=== PATIENT | female | born 1975 | race Two or more races ===

== ENCOUNTER 2020-03-01 12:42 | Outpatient (REF) | payer OTHER, SELFPAY ==
--- NOTE | 2020-03-01 | MM_ITS ---
EXAMINATION: MM SCREENING DIGITAL BREAST TOMOSYNTHESIS, BILATERAL CLINICAL INFORMATION: Screening. Asymptomatic. Patient notes prior history bilateral mastopexy approximately 10 years ago The lifetime risk of breast cancer based on the Tyrer-Cuzick Model is 8%. COMPARISON: Mammography: 09/28/2018, 08/20/2017, 08/04/2016, 07/14/2015 TECHNIQUE: Digital breast tomosynthesis is performed in both the craniocaudal and mediolateral oblique views along with computer-aided detection (CAD). Synthesized 2D images are generated from the tomosynthesis. FINDINGS: The breasts are heterogeneously dense, which may obscure small masses (ACR BI-RADS breast composition Category c). There is fine fibronodular parenchymal pattern similar to prior studies. The right breast shows no interval mass or architectural abnormality. Neither breast shows abnormal calcifications. The bilateral axilla and skin contours are unremarkable. The left CC view has asymmetric density outer quadrant 9.6 cm from nipple with no MLO correlate, likely summation artifact or incompletely compressed glandular tissue. Patient will be recalled to confirm with additional views. IMPRESSION: 1. Left: Asymmetric density outer quadrant on CC view likely summation artifact or incompletely compressed glandular tissue. 2. Right: No mammographic evidence of malignancy. ASSESSMENT: BI-RADS 0: Incomplete - Need Additional Imaging Evaluation RECOMMENDATION: 1. Additional views of the left breast (rolled CC x2). 2. Targeted ultrasound if warranted after review of the additional views. 3. Radiology department staff will contact the patient for additional imaging. This patient's information was entered into a reminder system with a target due date for their next mammogram.
== END 2020-03-01 12:43 | disposition home or self-care (01) ==
LOC: HO.MAMMO 12:42
PROVIDERS: PCP Internal Medicine; Visit Provider Internal Medicine
DX: Z12.31 Encounter for screening mammogram for malignant neoplasm of breast (principal)
CPT/HCPCS: 77063; 77067

== ENCOUNTER 2020-03-04 07:29 | Outpatient (REF) | payer OTHER, SELFPAY ==
--- NOTE | 2020-03-04 07:36 | MM_ITS ---
EXAMINATION: MM DIAGNOSTIC DIGITAL BREAST TOMOSYNTHESIS, LEFT CLINICAL INFORMATION: Recall from screening for asymmetric density outer quadrant on CC view, likely summation artifact or incompletely compressed glandular tissue. TC score 8%. COMPARISON: Mammography: 03/01/2020, 09/28/2018 TECHNIQUE: Digital breast tomosynthesis is performed. 2D images are generated from the tomosynthesis. The following views are obtained: Rolled CC x2, spot CC x2. FINDINGS: The breasts are heterogeneously dense, which may obscure small masses (ACR BI-RADS breast composition Category c). The additional views show no persistent asymmetric density. There is no mass or developing density or architectural abnormality. Results are discussed with the patient at time of visit. IMPRESSION: Additional views show no persistent asymmetric density. No significant changes from prior studies. ASSESSMENT: BI-RADS 1: Negative RECOMMENDATION: Routine annual mammography screening. This patient's information was entered into a reminder system with a target due date for their next mammogram.
== END 2020-03-04 07:30 | disposition home or self-care (01) ==
LOC: HO.MAMMO 07:29
PROVIDERS: PCP Internal Medicine; Visit Provider Internal Medicine
DX: N64.89 Other specified disorders of breast (principal); R92.2 Inconclusive mammogram
CPT/HCPCS: 77065

== ENCOUNTER 2021-03-10 08:34 | Outpatient (REF) | payer OTHER, SELFPAY ==
--- NOTE | ~2021-03-10 | MM_ITS ---
EXAMINATION: MM SCREENING DIGITAL BREAST TOMOSYNTHESIS, BILATERAL CLINICAL INFORMATION: Screening. Asymptomatic. The lifetime risk of breast cancer based on the Tyrer-Cuzick Model is 7%. COMPARISON: Mammography: 03/04/2020, 03/01/2020, 09/28/2018, 08/20/2017, 08/04/2016 TECHNIQUE: Digital breast tomosynthesis is performed in both the craniocaudal and mediolateral oblique views along with computer-aided detection (CAD). Synthesized 2D images are generated from the tomosynthesis. Additional bilateral CC views are provided. FINDINGS: The breasts are heterogeneously dense, which may obscure small masses (ACR BI-RADS breast composition Category c). There is a fine fibronodular parenchymal pattern similar to prior studies. No developing density or interval mass or architectural abnormality. No abnormal calcifications. The axilla and skin contours are unremarkable. MM/MM tomosynthesis screening BI IMPRESSION: No mammographic evidence of malignancy. ASSESSMENT: BI-RADS 1: Negative RECOMMENDATION: Routine annual mammography screening. This patient's information was entered into a reminder system with a target due date for their next mammogram.
== END 2021-03-10 08:35 | disposition home or self-care (01) ==
LOC: HO.MAMMO 08:34
PROVIDERS: Visit Provider Internal Medicine
DX: Z12.31 Encounter for screening mammogram for malignant neoplasm of breast (principal)
CPT/HCPCS: 77063; 77067

== ENCOUNTER 2021-09-19 09:56 | Outpatient (REF) | payer OTHER, SELFPAY ==
[2021-09-19 10:11] LABS: MANUAL DIFF FLAG NO
[2021-09-19 10:28] LABS: Basophils Percent Auto 0.7 % (0-2); Eosinophils Absolute Auto 0.1 X10*3/uL (0.0-0.4); Eosinophils Percent Auto 1.1 % (0-4); Hematocrit 38.4 % (37.0-47.0); Hemoglobin 12.8 g/dl (12.0-16.0); Imm Gran Abs Auto 0.01 X10*3/uL (0.00-0.03); Imm Gran Pct Auto 0.2 % (0.0-0.4); Lymphocytes Absolute Auto 1.4 X10*3/uL (1.2-4.9); Lymphocytes Percent Auto 26.9 % (20-40); Mean Corpuscular HGB Conc 33.3 g/dl (31.0-35.0); Mean Corpuscular Hemoglobin 32.8 pg (27.0-33.0); Mean Corpuscular Volume 98.5 fL (80.0-98.0); Mean Platelet Volume 10.5 fL (9.4-12.3); Monocytes Absolute Auto 0.4 X10*3/uL (0.1-1.2); Monocytes Percent Auto 7.5 % (2-11); Neutrophils Absolute Auto 3.4 x10*3/uL (2.0-8.3); Neutrophils Percent Auto 63.6 % (45-73); Platelet Count 319 X10*3/uL (160-400); Red Cell Distribution Width 12.4 % (11.0-16.0); White Blood Count 5.4 X10*3/uL (4.8-10.8)
[2021-09-19 12:14] LABS: Folate 11.1 ng/mL (> or = 4.0); Vitamin B12 341 pg/mL (200-900)
[2021-09-19 15:17] LABS: Alanine Aminotransferase 7 U/L (0-31); Alkaline Phosphatase 42 U/L (39-117); Anion Gap 12 (12-20); Aspartate Amino Transferase 11 U/L (5-31); Bilirubin Total 1.3 mg/dL (0.0-1.0); Blood Urea Nitrogen 18 mg/dL (9-16); Calcium 9.2 mg/dL (8.4-10.2); Carbon Dioxide 25 mmol/L (22-29); Chloride 105 mmol/L (96-108); Cholesterol 169 mg/dL; Estimated Glomerular Filt Rate > 60; Glucose Random 86 mg/dL (60-115); HDL Cholesterol 47 mg/dL; LDL Cholesterol Calculated 107 mg/dl; Potassium 4.5 mmol/L (3.3-5.1); Sodium 137 mmol/L (135-145); Total Protein 6.9 g/dL (6.5-8.0); Triglycerides 76 mg/dL
[2021-09-19 15:39] LABS: Free T4 (Free Thyroxine) 0.92 ng/dL (0.71-1.85); Thyroid Stimulating Hormone 1.79 uIU/mL (0.32-4.0); Vitamin D 25-OH Total 19.5 ng/mL (>30)
== END 2021-09-19 09:57 | disposition home or self-care (01) ==
LOC: HO.LAB 09:56
PROVIDERS: PCP Internal Medicine; Visit Provider Internal Medicine
DX: K21.9 Gastro-esophageal reflux disease without esophagitis (principal); E78.00 Pure hypercholesterolemia, unspecified
CPT/HCPCS: 36415; 80053; 80061; 82306; 82607; 82746; 84439; 84443; 85025

== ENCOUNTER 2021-10-04 14:12 | Outpatient (REF) | payer OTHER, SELFPAY ==
--- NOTE | ~2021-10-04 | US_ITS ---
EXAMINATION: US RETROPERITONEAL LIMITED (RENAL ONLY) CLINICAL INFORMATION: Stress incontinence. Renal stones. COMPARISON: CT abdomen 11/22/2006 TECHNIQUE: Real-time imaging of the kidneys. FINDINGS: RIGHT KIDNEY: 10.8 x 4.1 x 5.0 cm (SAG x AP x TRV). The kidney is normal in size, contour, and echogenicity. Renal cortical thickness is normal. No calculi or focal parenchymal lesions. No hydronephrosis. LEFT KIDNEY: 10.2 x 4.1 x 4.8 cm (SAG x AP x TRV). The kidney is normal in size, contour, and echogenicity. Renal cortical thickness is normal. No focal parenchymal lesions. A 3 mm nonobstructing left lower pole renal stone. Trace left hydronephrosis. BLADDER: Bilateral ureteral jets are demonstrated. Prevoid bladder volume is 538 mL. Postvoid bladder volume is 81 mL. Bladder is otherwise unremarkable. US/US renal BI IMPRESSION: Trace left hydronephrosis. Consider CT stone protocol if any clinical concern for obstructing ureteral stone. A 3 mm nonobstructing left lower pole renal stone is seen. Small postvoid bladder residual of 81 mL.
--- NOTE | ~2021-10-04 | US_ITS ---
EXAMINATION: US PELVIS CLINICAL INFORMATION: Fibroid. Stress incontinence. COMPARISON: 04/27/2015 and 06/02/2014. TECHNIQUE: Ultrasound of the pelvis is performed using both transabdominal and transvaginal transducers along with Doppler. Transvaginal imaging is performed due to inadequate visualization transabdominally. FINDINGS: Uterus: The uterus is anteverted and measures 13.3 x 7.8 x 9.9 cm. Uterine volume is 537 mL. The double wall endometrial thickness is 9 mm. Multiple uterine fibroids are identified, 2 of which are new with the new fibroids identified in the superior mid upper uterine segment measuring 2.6 x 1.4 x 2.1 and in the mid uterine segment towards the right side, there is a 2.0 x 1.7 x 2.3 cm fibroid. A previously noted fibroid within the right upper uterine segment/fundus has increased in size to 3.7 x 3.4 x 3.9 cm compared to prior study where it measured 1.9 x 1.9 x 1.8 cm in size. There has also been enlargement of a mid uterine fibroid extending on the left to 8.9 x 7.2 x 9.1 cm in size compared to previously where it measured 5.0 x 4.4 x 5.0 cm in size. There are prominent uterine/ovarian veins present bilaterally. Adnexa: Both ovaries are visualized. There is normal color-flow to the adnexa. There is no ovarian torsion. There is a moderate amount of free fluid present. Right ovary was not identified. Left ovary measures 3.4 x 2.4 x 2.8 cm. Volume of 12.0 mL. US/US pelvic and transvaginal IMPRESSION: Enlarging uterine fibroids, as described, with 2 new fibroids identified. Moderate free fluid within the cul-de-sac. Prominent pelvic veins which may be related to pelvic congestion.
== END 2021-10-04 14:13 | disposition home or self-care (01) ==
LOC: HO.HMGCX 14:12
PROVIDERS: Visit Provider Internal Medicine
DX: N20.0 Calculus of kidney (principal); D21.9 Benign neoplasm of connective and other soft tissue, unspecified
CPT/HCPCS: 76775; 76830; 76856

== ENCOUNTER → 2021-11-14 12:31 | Outpatient (BNVA) | payer OTHER, SELFPAY | PROVIDERS: PCP Internal Medicine; Referring Provider Internal Medicine; Visit Provider Physician Assistant | DX: Z12.11 Encounter for screening for malignant neoplasm of colon (principal) | CPT/HCPCS: 99202 ==

== ENCOUNTER 2021-11-22 09:04 | Day surgery (SDC) | payer OTHER, SELFPAY ==
--- NOTE | 2021-11-18 09:43 | P.CONAN_ITS ---
Documented by User: Amy Mac NP 11/18/21 09:50 HPI - Anesthesia Eval Consult details Narrative: 46yo F for Colonoscopy PMFSH Active Problems Active Problems: All Active Problems (Updated 09/19/21 @ 09:28 by Arabella Hawkins MD) Mixed incontinence (Acute) Swollen eyelid (Acute) Fibroid (Acute) Right renal stone (Acute) Colon cancer screening (Acute) Annual physical exam (Acute) GERD (gastroesophageal reflux disease) (Acute) Breast asymmetry (Acute) Past Medical History Medical History Allergic rhinitis Anxiety and depression GERD (gastroesophageal reflux disease) Insomnia Right renal stone Strabismus Stress incontinence Vitamin D deficiency Family History Family History Mother Hypertension Father Cancer Liver cancer Surgical History Surgical History H/O abdominoplasty History of breast mammoplasty Social History Social History Housing: Apartment Alcohol intake: never Patient Tobacco Use Status: Never used Tobacco e-Cigarette/Vaping Use: Never Used Second Hand Smoke Exposure: No Use of substances other than those prescribed or required for medical reasons: No Are you DNR?: No Advance Directives: No Advance Directives Information Provided: Yes Recently lost weight without trying: No How much weight loss: 24-33 pounds Nutrition Risks: No Nutritional Risk service: No Current occupational status: employed Current occupation: Homecare Cognitive needs: No Hearing needs: No Vision needs: No Meds Allergies Allergy/AdvReac Type Severity Reaction Status Date / Time zaleplon Allergy Unknown inadequate Verified 11/14/21 12:36 response zolpidem Allergy Unknown inadequate Verified 11/14/21 12:36 response Home Medications Medication Instructions Recorded Confirmed Last Taken Type fluticasone furoate 27.5 1 spray intranasal DAILY 09/19/21 09/19/21 Unknown History mcg/actuation nasal spray,suspension Exam Exam Date and Time: November 18, 2021 0943 Pertinent Lab Results Pertinent Lab Results: Laboratory Tests 09/19/21 09/19/21 10:09 Unknown WBC 5.4 Hgb 12.8 Hct 38.4 Plt Count 319 Sodium 137 Potassium 4.5 Chloride 105 Carbon Dioxide 25 BUN 18 H Creatinine 0.80 Assessment and Plan Assessment Anesthesia Assessment: Chart Reviewed Documented by User: Roque Car MD 11/22/21 10:27 [facility] Past Medical History Medical History Allergic rhinitis Anxiety and depression GERD (gastroesophageal reflux disease) Insomnia Right renal stone Strabismus Stress incontinence Vitamin D deficiency Patient : No Family History Family History Mother Hypertension Father Cancer Liver cancer Family history of problems with anesthesia: No Surgical History Surgical History H/O abdominoplasty History of breast mammoplasty History of Problems with Anesthesia: No Social History Social History Housing: Apartment Alcohol intake: never Patient Tobacco Use Status: Never used Tobacco e-Cigarette/Vaping Use: Never Used Second Hand Smoke Exposure: No Use of substances other than those prescribed or required for medical reasons: No Are you DNR?: No Advance Directives: No Advance Directives Information Provided: Yes Recently lost weight without trying: No How much weight loss: 24-33 pounds Nutrition Risks: No Nutritional Risk service: No Current occupational status: employed Current occupation: Homecare Cognitive needs: No Hearing needs: No Vision needs: No Meds Allergies Allergy/AdvReac Type Severity Reaction Status Date / Time zaleplon Allergy Unknown inadequate Verified 11/14/21 12:36 response zolpidem Allergy Unknown inadequate Verified 11/14/21 12:36 response Home Medications Medication Instructions Recorded Confirmed Last Taken Type fluticasone furoate 27.5 1 spray intranasal DAILY 09/19/21 09/19/21 Unknown Hist ory mcg/actuation nasal spray,suspension Exam Airway Mallampati Class: III TM Dist: >3cm Neck ROM: Full Loose/Missing/Broken Teeth: No Heart: rrr Lungs: clear Assessment and Plan Final Anesthetic Review Family History of Problems with Anesthesia: No History of Problems with Anesthesia: No NPO: Yes ASA Class: II Final Preanesthetic Review: No Changes in Pt Med Stat, Meds/Allgs Chart Reviewed, Consent Obtained/Reviewed and Anes Risks/Benef Reviewed Patient Risk: Low Procedure Risk: Low Anesthetic Plan Anesthetic Plan: MAC: Disposition: Standard PACU
[2021-11-22 09:46] LABS: UPreg QC Valid YES; Urine Pregnancy NEGATIVE (NEGATIVE)
[2021-11-22 09:51] VITALS: BMI 23.6
[2021-11-22 10:03] VITALS: BP 121/58; PULSE 64; RESP 16; TEMP 36.3; O2SAT 96
--- NOTE | 2021-11-22 10:56 | MHC.SHP ---
Pre-Procedural Eval Section A Date of Service: 11/22/21 The patient is an INPATIENT: No Changes since office visit: Yes Patient answered all questions; No Cold of Flu in the past 2 weeks, No New Medical Problems and No Changes in Medication The History & Physical has been completed within 30 days and I have reviewed it.: Yes Section B Chief Complaint: screening Allergies: Allergies Allergy/AdvReac Type Severity Reaction Status Date / Time zaleplon Allergy Unknown inadequate Verified 11/14/21 12:36 response zolpidem Allergy Unknown inadequate Verified 11/14/21 12:36 response Plan I have reviewed the history and physical and performed a pertinent physical examination on my patient. No changes have occurred unless specified.
--- NOTE | 2021-11-22 10:57 | P.BOP_ITS ---
Brief Operative Note Date of Service: 11/22/21 Pre-op diagnosis: Colon cancer screening Post-op diagnosis: other ( diverticulosis, hemorrhoids) Procedure: COLONOSCOPY TILL CECUM Consent: Indications for the procedure and potential complications of bleeding, perforation, reaction to medications and missed diagnosis were discussed with the patient and informed consent was obtained. Instrument: Olympus PCF H 190 L variable stiffness pediatric colonoscope Monitoring: Vital signs and clinical assessment, intermittent blood pressure monitoring, continuous EKG monitoring, Pulse oximetry and Carbon Dioxide monitoring were done throughout the procedure. Colon withdrawl time was 17 minutes. Procedure: The patient was placed in the left lateral decubitis position and pre-procedure medications were administered. After a digital rectal examination of the ano-rectum, the video colonoscope was inserted into the rectum and advanced through the colon to the cecum. The colonoscope was slowly withdrawn in a retrograde panoramic fashion and the colon mucosa was carefully examined including a retroflexed view of the rectum. Findings and interventions are described below. Procedure Difficulty: colon was long and tortuous and there was spasm and some loop formation. no maneuvers were required Findings: Terminal Ileum: Not evaluated Cecum: Normal Ascending Colon: Normal Transverse Colon: Normal Descending Colon: Moderate diverticulosis Sigmoid Colon: Moderate diverticulosis Rectum: Normal Ano-rectum: Small internal hemorrhoids Colon preparation: Excellent Impression and Post Procedure Diagnosis: Colonoscopy Findings: No polyps were detected. Moderate diverticulosis seen in the left colon Small hemorrhoids on retroflexed exam. Plan: Patient has an appointment on 12/14/21 in the [facility] with CHERYLE Conrad. Repeat Colonoscopy in 9-10 years. Above findings were reviewed with the patient and diverticulosis handout was given in the discharge area Surgeon: Abeba Grigsby MD Anesthesia: MAC (Dr Car) Was an In Service Education Teacher used for this Procedure?: Yes In Service Education Teacher: Ave Smith Estimated blood loss (mL): 0 Pathology: none sent Condition: stable Disposition: PACU
[2021-11-22 11:42] VITALS: BP 102/45; PULSE 60; RESP 16; TEMP 36.4; O2SAT 100
--- NOTE | 2021-11-22 11:51 | P.OP_ITS ---
Operative Note Operative Note Date of Service: 11/22/21 Narrative: Pre-op diagnosis: Colon cancer screening Post-op diagnosis:?other ( diverticulosis, hemorrhoids) Procedure: COLONOSCOPY TILL CECUM Consent: Indications for the procedure and potential complications of bleeding, perforation, reaction to medications and missed diagnosis were discussed with the patient and informed consent was obtained. Instrument: Olympus PCF H 190 L variable stiffness pediatric colonoscope Monitoring: Vital signs and clinical assessment, intermittent blood pressure monitoring, continuous EKG monitoring, Pulse oximetry and Carbon Dioxide monitoring were done throughout the procedure. Colon withdrawl time was 17 minutes. Procedure: The patient was placed in the left lateral decubitis position and pre-procedure medications were administered. After a digital rectal examination of the ano-rectum, the video colonoscope was inserted into the rectum and advanced through the colon to the cecum. The colonoscope was slowly withdrawn in a retrograde panoramic fashion and the colon mucosa was carefully examined including a retroflexed view of the rectum. Findings and interventions are described below. Procedure Difficulty: ? colon was long and tortuous and there was spasm and some loop formation. ?no maneuvers were required Findings: Terminal Ileum: Not evaluated Cecum:? Normal Ascending Colon:? Normal Transverse Colon:? Normal Descending Colon:? Moderate diverticulosis Sigmoid Colon:? Moderate diverticulosis Rectum:? Normal Ano-rectum:? Small internal hemorrhoids Colon preparation: Excellent ? Impression and Post Procedure Diagnosis: Colonoscopy Findings: No polyps were detected. Moderate diverticulosis seen in the left colon Small hemorrhoids on retroflexed exam. Plan: Patient has an appointment on 12/14/21 in the GI Clinic with CHERYLE Conrad. Repeat Colonoscopy in 9-10 years. Diverticulosis handout was given in the discharge area Surgeon: Abeba Grigsby MD Anesthesia:?MAC (Dr Car) Was an Material Requirements Worker used for this Procedure?:?Yes Material Requirements Worker:?Ave Smith Estimated blood loss (mL):?0 Pathology:?none sent Condition:?stable Disposition:?PACU
[2021-11-22 11:57] VITALS: BP 105/57; PULSE 57; RESP 18; O2SAT 100
[2021-11-22 12:12] VITALS: BP 127/71; PULSE 55; RESP 16; TEMP 36.7; O2SAT 100
== END 2021-11-22 12:46 | disposition home or self-care (01) ==
PROVIDERS: Nurse Practitioner; PCP Internal Medicine; Visit Provider Internal Medicine Gastroenterology
PROC: 0DJD8ZZ Inspection of Lower Intestinal Tract, Via Natural or Artificial Opening Endoscopic (ICD-10-PCS; CPT 45378; principal; 2021-11-22 10:40)
DX: Z12.11 Encounter for screening for malignant neoplasm of colon (principal); K57.30 Diverticulosis of large intestine without perforation or abscess without bleeding; K64.8 Other hemorrhoids; R14.0 Abdominal distension (gaseous); Z98.890 Other specified postprocedural states; J30.9 Allergic rhinitis, unspecified; F41.8 Other specified anxiety disorders; E55.9 Vitamin D deficiency, unspecified; Z79.51 Long term (current) use of inhaled steroids; Z88.8 Allergy status to other drugs, medicaments and biological substances
CPT/HCPCS: 45378; 81025

== ENCOUNTER → 2021-12-05 13:06 | Outpatient (BNVA) | payer OTHER, SELFPAY | PROVIDERS: PCP Internal Medicine; Visit Provider Obstetrics & Gynecology | DX: D25.9 Leiomyoma of uterus, unspecified (principal) | CPT/HCPCS: 99202 ==

== ENCOUNTER → 2021-12-15 15:07 | Outpatient (BNVA) | payer OTHER, SELFPAY | PROVIDERS: PCP Internal Medicine; Referring Provider Internal Medicine; Visit Provider Physician Assistant | DX: K64.9 Unspecified hemorrhoids (principal); K57.30 Diverticulosis of large intestine without perforation or abscess without bleeding | CPT/HCPCS: 99212 ==

== ENCOUNTER → 2022-03-10 12:37 | Outpatient (BNVA) | payer OTHER, SELFPAY | PROVIDERS: PCP Internal Medicine; Visit Provider Physician Assistant | DX: M77.12 Lateral epicondylitis, left elbow (principal) | CPT/HCPCS: 20551; 99202; J1100 ==

== ENCOUNTER 2022-03-13 08:11 | Outpatient (REF) | payer OTHER, SELFPAY ==
--- NOTE | ~2022-03-13 | MM_ITS ---
EXAMINATION: MM SCREENING DIGITAL BREAST TOMOSYNTHESIS, BILATERAL CLINICAL INFORMATION: Screening. Asymptomatic. Status post breast reduction surgery. The lifetime risk of breast cancer based on the Tyrer-Cuzick Model is 5.9%. COMPARISON: Mammography: March 10, 2021 and studies dating back to May 19, 2014 TECHNIQUE: Digital breast tomosynthesis is performed in both the craniocaudal and mediolateral oblique views along with computer-aided detection (CAD). Synthesized 2D images are generated from the tomosynthesis. FINDINGS: The breasts are extremely dense, which lowers the sensitivity of mammography (ACR BI-RADS breast composition Category d). There are no significant masses, abnormal calcifications, or other abnormalities. MM/MM tomosynthesis screening BI IMPRESSION: No significant changes from prior exam. ASSESSMENT: BI-RADS 1: Negative RECOMMENDATION: Routine annual mammography screening. This patient's information was entered into a reminder system with a target due date for their next mammogram.
== END 2022-03-13 08:12 | disposition home or self-care (01) ==
LOC: HO.MAMMO 08:11
PROVIDERS: PCP Internal Medicine; Visit Provider Internal Medicine
DX: Z12.31 Encounter for screening mammogram for malignant neoplasm of breast (principal)
CPT/HCPCS: 77063; 77067

== ENCOUNTER 2022-03-23 10:17 | Outpatient (REF) | payer OTHER, SELFPAY ==
[2022-03-23 13:34] LABS: CT PCR NOT DETECTED (Not Detect.); NG PCR NOT DETECTED (Not Detect.)
[2022-03-24 11:12] LABS: BV Int Neg Control Negative (Negative); BV Int Pos Control Positive (Positive)
[2022-03-28 20:52] LABS: HPV mRNA E6/E7 rflx Not Detected (Not Detected)
== END 2022-03-23 10:18 | disposition home or self-care (01) ==
LOC: HO.LNP 10:17
PROVIDERS: Visit Provider Advanced Practice Midwife
DX: Z01.419 Encounter for gynecological examination (general) (routine) without abnormal findings (principal)
CPT/HCPCS: 87480; 87491; 87510; 87591; 87624; 87660; 88142

== ENCOUNTER 2022-08-22 11:01 | Outpatient (REF) | payer OTHER, SELFPAY ==
--- NOTE | ~2022-08-22 | US_ITS ---
EXAMINATION: US PELVIS CLINICAL INFORMATION: Uterine leiomyoma; the patient is currently having her menstrual period. COMPARISON: Pelvic ultrasound dated 10/04/2021. TECHNIQUE: Ultrasound of the pelvis is performed using both transabdominal and transvaginal transducers along with Doppler. Transvaginal imaging is performed due to inadequate visualization transabdominally. FINDINGS: Uterus: The uterus is retroverted and measures 13.6 x 10.1 x 9.2 cm. The double wall endometrial thickness is poorly visualized due to fibroid disease. FIBROIDS: There are 3 fibroids seen. 1. Location: Leftward uterine body, myometrial. Size: 7.4 x 7.6 x 7.1 cm. Prior: 8.9 x 7.2 x 9.1 cm. Fibroid characteristics: Heterogeneous echotexture. 2. Location: Anterior upper body, myometrial. Size: 4.5, 0.3 0.7 x 3.8 cm. Prior: Not seen. Fibroid characteristics: Heterogeneous echotexture. 3. Location: Fundus, exophytic. Size: 3.6 x 3.5 x 4.0 cm. Prior: 3.7 x 3.4 x 3.9 cm. Fibroid characteristics: Hypoechoic. Adnexa: Both ovaries are visualized. There is normal color flow to the adnexa. There is no ovarian torsion. There is no pelvic ascites or fluid collection. Right ovary measures 3.0 x 1.6 x 1.8 cm, volume 4.5 mL. Left ovary measures 3.1 x 1.0 x 2.8 cm, volume 4.5 mL. US/US pelvic and transvaginal IMPRESSION: 1. Uterine fibroids are seen, as detailed. 2. There is secondary nonvisualization of the endometrial stripe.
== END 2022-08-22 11:02 | disposition home or self-care (01) ==
LOC: HO.US 11:01
PROVIDERS: PCP Internal Medicine; Visit Provider Obstetrics & Gynecology
DX: D25.9 Leiomyoma of uterus, unspecified (principal)
CPT/HCPCS: 76830; 76856

== ENCOUNTER 2022-10-10 09:55 | Outpatient (REF) | payer OTHER, SELFPAY ==
[2022-10-10 10:40] LABS: MANUAL DIFF FLAG NO
[2022-10-10 11:36] LABS: Basophils Absolute Auto 0.1 X10*3/uL (0.0-0.2); Basophils Percent Auto 0.8 % (0-2); Eosinophils Absolute Auto 0.1 X10*3/uL (0.0-0.4); Hematocrit 38.2 % (37.0-47.0); Hemoglobin 12.7 g/dl (12.0-16.0); Imm Gran Abs Auto 0.02 X10*3/uL (0.00-0.03); Imm Gran Pct Auto 0.3 % (0.0-0.4); Lymphocytes Absolute Auto 1.5 X10*3/uL (1.2-4.9); Lymphocytes Percent Auto 24.7 % (20-40); Mean Corpuscular HGB Conc 33.2 g/dl (31.0-35.0); Mean Corpuscular Hemoglobin 32.5 pg (27.0-33.0); Mean Corpuscular Volume 97.7 fL (80.0-98.0); Monocytes Absolute Auto 0.4 X10*3/uL (0.1-1.2); Neutrophils Percent Auto 66.2 % (45-73); Platelet Count 287 X10*3/uL (160-400); Red Blood Count 3.91 X10*6/uL (4.20-5.50); White Blood Count 6.1 X10*3/uL (4.8-10.8)
[2022-10-10 12:09] LABS: Alanine Aminotransferase 12 U/L (0-31); Alkaline Phosphatase 41 U/L (39-117); Anion Gap 10 (12-20); Aspartate Amino Transferase 14 U/L (5-31); Bilirubin Total 1.5 mg/dL (0.0-1.0); Blood Urea Nitrogen 12 mg/dL (9-16); Carbon Dioxide 25 mmol/L (22-29); Chloride 106 mmol/L (96-108); Cholesterol 172 mg/dL; Estimated Glomerular Filt Rate > 60; Glucose Random 80 mg/dL (60-115); HDL Cholesterol 48 mg/dL; LDL Cholesterol Calculated 109 mg/dl; Potassium 4.8 mmol/L (3.3-5.1); Sodium 136 mmol/L (135-145); Total Protein 6.9 g/dL (6.5-8.0); Triglycerides 77 mg/dL
[2022-10-10 12:22] LABS: Folate 10.8 ng/mL (> or = 4.0); Free T4 (Free Thyroxine) 0.96 ng/dL (0.71-1.85); Thyroid Stimulating Hormone 2.06 uIU/mL (0.32-4.0); Vitamin B12 365 pg/mL (200-900)
== END 2022-10-10 09:56 | disposition home or self-care (01) ==
LOC: HO.LAB 09:55
PROVIDERS: Absent Provider Internal Medicine; PCP Internal Medicine; Visit Provider Obstetrics & Gynecology
DX: E78.00 Pure hypercholesterolemia, unspecified (principal); N20.0 Calculus of kidney; D25.9 Leiomyoma of uterus, unspecified
CPT/HCPCS: 36415; 80053; 80061; 82306; 82607; 82746; 84439; 84443; 85025; 99212

== ENCOUNTER 2022-12-23 08:33 | Emergency (ER) | payer OTHER, SELFPAY ==
--- NOTE | ~2022-12-23 | US_ITS ---
EXAMINATION:US pelvic and transvaginal CLINICAL INFORMATION: Reason for Exam severe pelvic pain, history of fibroid, cannot uri COMPARISON: No priors available. LMP: 08/22/2022 FINDINGS: UTERUS: The uterus is anteverted. Size: Enlarged 16.9 x 7.8 x 10.6 cm. Uterine mass: Multiple uterine masses likely fibroids measuring up to 7.7 cm, 2.8 cm and 3.7 cm not changed from recent ultrasound of 08/22/2022. Cervix: Grossly unremarkable. Endometrium: No ultrasound evidence of endometrial lesion. endometrial thickness measures ADNEXA: Normal Right ovary: Normal in size. There are follicles the largest 3.2 cm. Left ovary: Normal in size. There are follicles largest 1.1 cm. Doppler exam: Normal Doppler flow identified in both ovaries. FREE FLUID: Trace amount of free fluid. OTHER FINDINGS: Lovett catheter in place. US/US pelvic and transvaginal IMPRESSION: * Enlarged fibroid uterus. * Bilateral ovarian follicles the largest on the right 3.2 cm, the largest on the left 1.1 cm. * No ultrasound evidence of ovarian torsion.
[2022-12-23 08:34] VITALS: BP 137/79; PULSE 90; RESP 18; TEMP 36.4; O2SAT 100; BMI 25.8
--- NOTE | 2022-12-23 09:45 | ED.GENADULT ---
HPI - General Adult General Chief complaint: Abdominal Pain Stated complaint: bowel and bladder pain unable to urinate Time Seen by Provider: 12/23/22 09:29 Source: patient Mode of arrival: ambulatory Limitations: no limitations History of Present Illness HPI narrative: 47-year-old female presents with pelvic pain. Symptoms started today. This pain is severe. Constant. There is no clear relieving or exacerbating features. She is having difficulty urinating. She does have a known fibroid which she is due to have embolized. That was postponed due to the procedure being on her birthday. Patient denies any fevers or chills. She denies any nausea vomiting. She denies any vaginal bleeding or discharge. There is no diarrhea constipation. Pain that she has his aching crampy in nature. Does not radiate. Describes the pain as an 8/10 at this time Related Data Home Medications Medication Instructions Recorded Confirmed cholecalciferol (vitamin D3) 25 25 mcg PO DAILY 10/10/22 10/27/22 mcg (1,000 unit) capsule Previous Rx's Medication Instructions Recorded fluticasone furoate 27.5 2 spray intranasal DAILY 30 days 10/27/22 mcg/actuation nasal #27.3 mL spray,suspension sennosides 8.6 mg-docusate sodium 2 tab-cap PO BEDTIME #60 tabs 10/27/22 50 mg tablet (Senna-S) Allergies Allergy/AdvReac Type Severity Reaction Status Date / Time zaleplon Allergy Unknown inadequate Verified 10/27/22 14:32 response zolpidem Allergy Unknown inadequate Verified 10/27/22 14:32 response Review of Systems Review of Systems: CONSTITUTIONAL: Denies weight loss, fever and chills. HEENT: Denies changes in vision and hearing. RESPIRATORY: Denies SOB and cough. CV: Denies palpitations no CP. GI: + abdominal pain, - nausea, vomiting and diarrhea. : difficulty urinating MSK: Denies myalgia and joint pain. SKIN: Denies rash and pruritus. NEUROLOGICAL: Denies headache and syncope. PSYCHIATRIC: Denies recent changes in mood. Denies anxiety and depression. All other ROS are negative unless in HPI PMFSH Past Medical History Medical History Allergic rhinitis Annual physical exam Anxiety and depression Breast asymmetry Dysuria Encounter for annual routine gynecological examination Fibroid GERD (gastroesophageal reflux disease) Insomnia Right renal stone Strabismus Stress incontinence Swollen eyelid Vaginal discomfort Vaginal irritation Vitamin D deficiency Surgical History H/O abdominoplasty History of breast mammoplasty Family History Family History Mother Hypertension Father Cancer Liver cancer Maternal Aunt Breast cancer Social History Social History Housing: Apartment Alcohol intake: former Patient Tobacco Use Status: Never used Tobacco Smoked in Last 30 Days: No e-Cigarette/Vaping Use: Never Used Second Hand Smoke Exposure: No Use of substances other than those prescribed or required for medical reasons: No Advance Directives: No Advance Directives Information Provided: No Patient : No service: No Current occupational status: employed Current occupation: Homecare Cognitive needs: No Hearing needs: No Vision needs: Yes Physical Exam ED Vital Signs: Vital Signs - 24 hr 12/23/22 08:34 Temperature 97.6 F Pulse Rate 90 Respiratory Rate 18 Blood Pressure 137/79 Pulse Oximetry 100 Oxygen Delivery Method Room Air BMI result Body Mass Index 25.8 GEN: Well developed, no acute distress, alert, oriented HEENT: Normocephalic, atraumatic, normal external ears, nose appears normal Eyes: Normal to appearance Neck: Supple, no lymphadenopathy Respiratory: Talks in complete sentences, no respiratory distress Extremities: No clubbing cyanosis or edema Neurologic: No focal neurologic deficits, cranial nerves 2-12 intact, gait normal Skin: No rash abdomen: Lower abdominal tenderness without rebound or guarding Course Course Course Narrative: The workup is complete. She is feeling much better. The Lovett catheter remains in place. She would like to discontinue that and attempt to go home without the catheter. She is aware that she may need to return for replacement. There is no evidence UTI. Ultrasound identified a very large fibroid. I discussed contacting her OBGYN to potentially arrange an earlier embolization procedure. Medications Administered Discontinued Medications Generic Name Dose Route Start Last Admin Trade Name Freq PRN Reason Stop Dose Admin Acetaminophen 975 mg 12/23/22 09:43 12/23/22 10:33 Acetaminophen 325 Mg Tablet PO 12/23/22 09:44 Not Given ONCE ONE Ibuprofen 600 mg 12/23/22 09:43 12/23/22 10:33 Ibuprofen 600 Mg Tablet PO 12/23/22 09:44 Not Given ONCE ONE Medical Decision Making Medical Decision Making [facility] Narrative: 47-year-old female presents with pelvic pain, difficulty urinating. Differential diagnosis includes outlet obstruction, bladder spasm, pelvic pain, mass effect, UTI. Will obtain urinalysis, fried patient with and cheesy a and obtain ultrasound of the pelvic area Differential Diagnosis Differential Diagnoses: The differential diagnosis associated with the presentation includes ( see above) Admission/Observation Consideration of admission/observation: Escalation of care including admission/observation considered Lab Data [facility] Lab Attestation statement: I reviewed the patient's lab results. Labs: Lab Results 12/23/22 Range/Units 09:55 Urine Color Yellow Urine Appearance Clear Urine pH 6.0 (5.0-9.0) Ur Specific [place] 1.015 (1.005-1.025) Urine Protein Negative (Neg-Trace) mg/dL Urine Glucose (UA) Negative (Negative) mg/dL Urine Ketones Negative (Negative) mg/dL Urine Blood Negative (Negative) Urine Nitrite Negative (Negative) Ur Leukocyte Esterase Trace H (Negative) Urine RBC 0-2 (0-2) /HPF Urine WBC 0-5 (0-5) /HPF Ur Squamous Epith Cells 3-5 (0-2) /HPF Urine Bacteria None Seen (None Seen) Hyaline Casts 0-2 (0-2) /LPF Independent Interpretation I performed an independent interpretation of an: Ultrasound Prescription Management I considered prescription management with: Pain Medication and Antibiotic Discharge Plan Discharge Clinical Impression: Acute retention of urine, Uterine myoma Patient Disposition: Home, Self-Care Prescriptions: No Action fluticasone furoate 27.5 mcg/actuation spray,suspension 2 spray intranasal DAILY 30 Days Qty: 27.3 11RF Rx Instructions: into each nostril sennosides-docusate sodium [Senna-S] 8.6-50 mg tablet 2 tab-cap PO BEDTIME Qty: 60 3RF cholecalciferol (vitamin D3) 25 mcg (1,000 unit) capsule 25 mcg PO DAILY Referrals: Po,Arabella Jara MD [Primary Care Provider] - 3 days
[2022-12-23 10:13] LABS: Appearance Urine Clear; Color Urine Yellow; Glucose Urine UA Negative (Negative); Leukocyte Esterase Urine Trace (Negative); Nitrite Urine Negative (Negative); Specific Gravity - Urine 1.015 (1.005-1.025); UMIC TRIGGER UACC YES; Urine Blood Negative (Negative); Urine Ketones Negative (Negative); Urine Protein Negative (Neg-Trace)
--- NOTE | 2022-12-23 10:33 | PC.NURSE ---
Pt stated she wanted to wait for mccloud cath to be inserted before administering pain medication. After foely was inserted and draining pain was reassessed and pain denied any pain, and stated she did not want the tylenol or ibuprofen. Pt taken for u/s.
[2022-12-23 10:39] LABS: Bacteria Urine None Seen (None Seen); Hyaline Casts Urine 0-2 /LPF (0-2); RBC Urine 0-2 /HPF (0-2); WBC Urine 0-5 /HPF (0-5)
== END 2022-12-23 12:22 | disposition home or self-care (01) ==
PROVIDERS: Emergency Provider Emergency Medicine; PCP Internal Medicine
DX: R33.9 Retention of urine, unspecified (principal); D25.9 Leiomyoma of uterus, unspecified; R10.2 Pelvic and perineal pain
CPT/HCPCS: 51701; 51798; 76830; 76856; 81001; 99284

== ENCOUNTER 2023-01-02 07:00 | Outpatient (AMB) | payer OTHER, SELFPAY ==
[2023-01-02 07:17] VITALS: BP 118/76; PULSE 70; O2SAT 98; BMI 25.2
--- NOTE | 2023-01-02 07:17 | MHC.PC.OV ---
Vital Signs 01/02/23 07:17 Height 5 ft 3 in Weight 142 lb BMI 25.2 BP 118/76 Blood Pressure Location Lt brachial Position Sitting Pulse 70 Pulse Source Pulse Oximeter Pulse Oximetry (%) 98 Oxygen Delivery Method Room Air Intake Visit Reasons: [facility] [place] Thyroid, Urine Allergies zaleplon Allergy (Unknown, Verified 01/02/23 07:17) inadequate response zolpidem Allergy (Unknown, Verified 01/02/23 07:17) inadequate response Tobacco use date assessed: 07/06/22 Dental Screening Dental Screen Date: 01/02/23 Did you have a dental visit in the last 12 months?: Yes Did you have a dental problem in the last 6 months where you did not have access to dental care?: No Was dental information given to patient?: Patient has dentist HPI HPI Comments History of Present Illness Details 47-year-old female past medical history significant for GERD, PVD, constipation and uterine myoma. Patient of Dr. Felix, presents today for ER follow up. Patient was seen at [facility] Emergency Room on 12/23/2022 for severe pelvic pain and difficulty urinating, patient's history of fibroid that is due to be embolized however she postponed procedure due to it being scheduled on her birthday. Patient was found to have acute urinary retention requiring catheterization and ultrasound showed large fibroid. Patient advised to contact OBGYN for earlier embolization procedure. Patient reporst going to bathroom regularly, PAtient feels like empty bladder. Patient reports bilateral flank pain x2 weeks ago, denies fever, chills and urinary symptoms. UA negative in the emergency room.Denies Pelvic pain at this time. Previous renal U/S in September 2021 showedTrace left hydronephrosis. Consider CT stone protocol if any clinical concern for obstructing ureteral stone.A 3 mm nonobstructing left lower pole renal stone is seen. Repeat renal ultrasound ordered. Patient has her embolization procedure scheduled for 01/29/2023. Patient reports some firstly they do not have a sooner appointment. This ASSOCIATE PROFESSOR OF PATHOLOGY attempted to call [facility] for sooner appointment for patient however they stated that that would be the soonest appointment. Patient given physical form as requested by patient stating she had physical completed in October by Dr. FELIX. [facility] Medical History Allergic rhinitis Annual physical exam Anxiety and depression Breast asymmetry Dysuria Encounter for annual routine gynecological examination Fibroid GERD (gastroesophageal reflux disease) Insomnia Right renal stone Strabismus Stress incontinence Swollen eyelid Vaginal discomfort Vaginal irritation Vitamin D deficiency Surgical History H/O abdominoplasty History of breast mammoplasty Family History Mother Hypertension Father Cancer Liver cancer Maternal Aunt Breast cancer Social History Housing: Apartment Alcohol intake: former Patient Tobacco Use Status: Never used Tobacco e-Cigarette/Vaping Use: Never Used Second Hand Smoke Exposure: No service: No Current occupational status: employed Current occupation: Homecare Cognitive needs: No Hearing needs: No Vision needs: Yes Female Reproductive History Menstrual Age of Menarche: 11 Questionnaire PHQ-9 Over the last 2 weeks, how often have you been bothered by any of the following problems? 1. Little interest or pleasure in doing things: not at all 2. Feeling down, depressed, or hopeless: not at all 3. Trouble falling or staying asleep, or sleeping too much: not at all 4. Feeling tired or having little energy: not at all 5. Poor appetite or overeating: not at all 6. Feeling bad about yourself - or that you are a failure or have let yourself or your family down: not at all 7. Trouble concentrating on things, such as reading the newspaper or watching television: not at all 8. Moving or speaking so slowly that other people could have noticed. Or the opposite - being so fidgety or restless that you have been moving around a lot more than usual: not at all 9. Thoughts that you would be better off or of hurting yourself in some way: not at all Total score: 0 Depression Screening Interpretation: Negative Source: Developed by Drs. Trace Saldivar, Merissa Glasgow, Fercho Feng and colleagues, with an educational jeffrey from [employer]. Thrive Questionnaire Date Thrive assessed: 07/06/22 AUDIT C Alcohol Use Questionnaire (AUDIT-C) 1. How often do you have a drink containing alcohol?: Never 3. How often do you have six or more drinks on one occasion?: Never Total Score: 0 CEZAR-7 AMB Questionnaire CEZAR-7 Date CEZAR - 7 assessed: 07/06/22 Source: Developed by Drs. Trace Saldivar, Merissa Glasgow, Fercho Feng and colleagues, with an educational jeffrey from [employer]. Review of Systems Const Denies chills, Denies fatigue, Denies fever(s) and Denies poor appetite Eyes Denies no additional complaints ENT Reports Normal hearing present Card Denies chest pain, Denies syncope, Denies rapid heart rate and Denies dyspnea Resp Denies cough and Denies dyspnea GI Denies change in stool character, Denies constipation, Denies diarrhea, Denies nausea and Denies vomiting Denies urinary frequency, Denies dysuria and Denies urinary urgency Neuro Reports Normal hearing present, Denies confusion and Denies syncope Psych Denies confusion Endo Denies fatigue Physical exam (Primary Care) Vital Signs: Last Vital Signs Pulse 70 01/02/23 07:17 BP 118/76 01/02/23 07:17 Pulse Ox 98 01/02/23 07:17 Oxygen Delivery Method Room Air 01/02/23 07:17 BMI result Body Mass Index 25.2 Tobacco/Smoking Status: Tobacco use Status Tobacco use date assessed 07/06/22 01/02/23 07:21 Patient Tobacco Use Status Never used Tobacco 01/02/23 07:21 e-Cigarette/Vaping Use Never Used 01/02/23 07:21 PHQ-9: PHQ-9 Score PHQ-9: Total score 0 01/02/23 07:21 Depression Screening Interpretation: Negative Thrive Assessment: Date of Thrive Assessment Date Thrive assessed 07/06/22 01/02/23 07:21 Const General: No confusion Orientation/consciousness: No confusion HENMT Head: Yes normocephalic and Yes atraumatic Eyes Conjunctivae: conjunctivae normal Chest Chest palpation & inspection: normal inspection of the chest Resp Effort & Inspection: normal respiratory effort Auscultation: clear to auscultation bilaterally, no crackles, no rhonchi and no wheezes Cardio Rate: regular rate Rhythm: regular rhythm Heart sounds: S1 normal heart sound present and S2 normal heart sound present GI Inspection: Yes normal to inspection General: Yes no CVA tenderness Back/Spine/Pelvis Back: no CVA tenderness Skin Other: fungal noted to right great toe nail Neuro General: No confusion Cranial nerves: Yes Normal hearing present Extrem General: No edema Assessment and Plan Assessment & Plan (1) Uterine myoma: Code(s): D25.9 - Leiomyoma of uterus, unspecified Plan: Continue to follow with [facility] O[facility]YN for uterine fibroid embolization scheduled for 01/29/2023. (2) GERD (gastroesophageal reflux disease): Comment: With esophageal dysmotility Code(s): K21.9 - Gastro-esophageal reflux disease without esophagitis Qualifiers: Esophagitis presence: without esophagitis Qualified Code(s): K21.9 - Gastro-esophageal reflux disease without esophagitis Plan: Avoid the foods that cause that, usually spicy foods, tomato products, juices, coffee, soda and foods that you're sensitive to.? After eating do not lie down, allow 3-4 hours before lying down. And keep the head of the bed above 30 degrees to avoid the acid from going up. (3) Nephrolithiasis: Code(s): N20.0 - Calculus of kidney Plan: Given patient experiencing bilateral flank pain hx of kidney stone recent urinay retention, Renal U/S entered to [facility] evaluate for obstructing stone or hydronephrosis. (4) Onychomycosis: Code(s): B35.1 - Tinea unguium Plan: yellowing ntoe of right great toe, referrla entered to podiatry Plan Keep scheduled follow up with pcp. Orders: Orders US renal BI Today N20.0 - Calculus of kidney Referrals Podiatry Referral B35.1 - Tinea unguium Coding Level of Care Code Est Pt Level 4 (59171) Diagnoses Uterine myoma D25.9 GERD (gastroesophageal reflux disease) K21.9 Esophagitis presence: without esophagitis Nephrolithiasis N20.0 Onychomycosis B35.1
== END 2023-01-02 07:42 | disposition home or self-care (01) ==
PROVIDERS: PCP Internal Medicine; Visit Provider Nurse Practitioner Family
DX: D25.9 Leiomyoma of uterus, unspecified (principal); K21.9 Gastro-esophageal reflux disease without esophagitis; N20.0 Calculus of kidney; B35.1 Tinea unguium
CPT/HCPCS: 99214

== ENCOUNTER 2023-02-22 08:56 | Outpatient (REF) | payer OTHER, SELFPAY | END 2023-02-22 08:57 | disposition home or self-care (01) | LOC: HO.LAB 08:56 | PROVIDERS: PCP Internal Medicine; Visit Provider Internal Medicine | DX: R39.9 Unspecified symptoms and signs involving the genitourinary system (principal) | CPT/HCPCS: 81001 ==

== ENCOUNTER 2023-02-22 09:56 | Outpatient (AMB) | payer OTHER, SELFPAY ==
--- NOTE | 2023-02-22 10:40 | MHC.PC.OV ---
Vital Signs 02/22/23 10:41 Height 5 ft 3 in Weight 140 lb BMI 24.8 BP 130/76 Blood Pressure Location Lt brachial Position Sitting Pulse 64 Pulse Source Pulse Oximeter Pulse Oximetry (%) 98 Oxygen Delivery Method Room Air Intake Visit Reasons: back pain, urinary frequency Allergies zaleplon Allergy (Unknown, Verified 02/22/23 10:41) inadequate response zolpidem Allergy (Unknown, Verified 02/22/23 10:41) inadequate response Medication List - Last Reconciled 02/22/23 by Arabella Hawkins MD cholecalciferol (vitamin D3) 25 mcg PO DAILY ciclopirox 0.77% 1 appl topical BID 4 weeks fluticasone furoate 27.5 mcg/actuation 2 sprays intranasal DAILY 30 days sennosides-docusate sodium 8.6-50 mg (Senna-S) 2 tab-caps (2 x 8.6-50 mg) PO BEDTIME Tobacco use date assessed: 07/06/22 Dental Screening Dental Screen Date: 02/22/23 Did you have a dental visit in the last 12 months?: Yes Did you have a dental problem in the last 6 months where you did not have access to dental care?: No Was dental information given to patient?: Patient has dentist HPI back pain, urinary frequency HPI Details 48-year-old female with a history of nephrolithiasis GERD and uterine myoma last seen in December 2022. Myoma being taking care of by a gynecology in [facility] was scheduled for embolization. Mammogram is due this month colonoscopy is up-to-date patient was recently in the emergency room 12/23/2022 for difficulty urinating had urinary retention concern about flank pains and had some urinalysis done which revealed hematuria and was concerned about kidney stone. Patient has not had the ultrasound done yet and will do request again. As for nail basically will send in some cream with hold off from any additional pill as the patient just had embolization of the fibroid [facility] Medical History Allergic rhinitis Annual physical exam Anxiety and depression Breast asymmetry Dysuria Encounter for annual routine gynecological examination Fibroid GERD (gastroesophageal reflux disease) Insomnia Right renal stone Strabismus Stress incontinence Swollen eyelid Vaginal discomfort Vaginal irritation Vitamin D deficiency Surgical History H/O abdominoplasty History of breast mammoplasty Family History Mother Hypertension Father Cancer Liver cancer Maternal Aunt Breast cancer Social History Housing: Apartment Alcohol intake: former Patient Tobacco Use Status: Never used Tobacco e-Cigarette/Vaping Use: Never Used Second Hand Smoke Exposure: No service: No Current occupational status: employed Current occupation: Homecare Cognitive needs: No Hearing needs: No Vision needs: Yes Female Reproductive History Menstrual Age of Menarche: 11 Questionnaire PHQ-9 Over the last 2 weeks, how often have you been bothered by any of the following problems? 1. Little interest or pleasure in doing things: not at all 2. Feeling down, depressed, or hopeless: not at all 3. Trouble falling or staying asleep, or sleeping too much: not at all 4. Feeling tired or having little energy: not at all 5. Poor appetite or overeating: not at all 6. Feeling bad about yourself - or that you are a failure or have let yourself or your family down: not at all 7. Trouble concentrating on things, such as reading the newspaper or watching television: not at all 8. Moving or speaking so slowly that other people could have noticed. Or the opposite - being so fidgety or restless that you have been moving around a lot more than usual: not at all 9. Thoughts that you would be better off or of hurting yourself in some way: not at all Total score: 0 Depression Screening Interpretation: Negative Depression Screening Done: Yes Source: Developed by Drs. Trace Saldivar, Fercho Hawkins and colleagues, with an educational jeffrey from [employer]. Thrive Questionnaire Date Thrive assessed: 07/06/22 AUDIT C Alcohol Use Questionnaire (AUDIT-C) 1. How often do you have a drink containing alcohol?: Never 3. How often do you have six or more drinks on one occasion?: Never Total Score: 0 CEZAR-7 AMB Questionnaire CEZAR-7 Date CEZAR - 7 assessed: 07/06/22 Source: Developed by Drs. Trace Saldivar, Merissa B.W. Fercho Glasgow and colleagues, with an educational jeffrey from [employer]. Physical exam (Primary Care) Vital Signs: Last Vital Signs Pulse 64 02/22/23 10:41 BP 130/76 02/22/23 10:41 Pulse Ox 98 02/22/23 10:41 Oxygen Delivery Method Room Air 02/22/23 10:41 BMI result Body Mass Index 24.8 Tobacco/Smoking Status: Tobacco use Status Tobacco use date assessed 07/06/22 02/22/23 10:41 Patient Tobacco Use Status Never used Tobacco 02/22/23 10:41 e-Cigarette/Vaping Use Never Used 02/22/23 10:41 PHQ-9: PHQ-9 Score PHQ-9: Total score 0 02/22/23 18:17 Depression Screening Interpretation: Negative Thrive Assessment: Date of Thrive Assessment Date Thrive assessed 07/06/22 02/22/23 10:41 Const General: alert; No acute distress Eyes Conjunctivae: conjunctivae normal Resp Auscultation: clear to auscultation bilaterally Cardio Rate: regular rate Rhythm: regular rhythm GI Inspection: Yes normal to inspection Extrem General: Yes normal to inspection and No edema Assessment and Plan Assessment & Plan (1) Nephrolithiasis: Code(s): N20.0 - Calculus of kidney Plan: Keep well hydrated (2) Uterine myoma: Comment: 2022 Uterine Fibroid embolization Code(s): D25.9 - Leiomyoma of uterus, unspecified Plan: Patient is being followed up by gynecology had embolization - 6 months ff up MRI (3) GERD (gastroesophageal reflux disease): Comment: With esophageal dysmotility Code(s): K21.9 - Gastro-esophageal reflux disease without esophagitis Qualifiers: Esophagitis presence: without esophagitis Qualified Code(s): K21.9 - Gastro-esophageal reflux disease without esophagitis Plan: Avoid the foods that causes that usually spicy foods, tomato products, juices, coffee, soda and foods that your sensitive to. After eating do not lie down, allow 3-4 hours before in lie down. And keep the head of bed above 30 degrees to avoid the acid from going up. (4) Urinary retention: Code(s): R33.9 - Retention of urine, unspecified (5) Onychomycosis: Code(s): B35.1 - Tinea unguium Orders: Orders US renal BI Today N20.0 - Calculus of kidney Medications: New ciclopirox 0.77% 1 appl topical BID 30 grams 0RF 4 weeks B35.1 - Tinea unguium Refilled sennosides-docusate sodium 8.6-50 mg (Senna-S) 2 tab-caps (2 x 8.6-50 mg) PO BEDTIME 60 tabs 3RF K59.00 - Constipation, unspecified sennosides-docusate sodium 8.6-50 mg (Senna-S) 2 tab-caps (2 x 8.6-50 mg) PO BEDTIME 60 tabs 3RF K59.00 - Constipation, unspecified Coding Level of Care Code Est Pt Level 4 (89810) Diagnoses Nephrolithiasis N20.0 Uterine myoma D25.9 Gastroesophageal reflux disease without esophagitis K21.9 Esophagitis presence: without esophagitis Urinary retention R33.9 Onychomycosis B35.1
[2023-02-22 10:41] VITALS: BP 130/76; PULSE 64; O2SAT 98; BMI 24.8
== END 2023-02-22 11:29 | disposition home or self-care (01) ==
PROVIDERS: PCP Internal Medicine; Visit Provider Internal Medicine
DX: N20.0 Calculus of kidney (principal); D25.9 Leiomyoma of uterus, unspecified; K21.9 Gastro-esophageal reflux disease without esophagitis; R33.9 Retention of urine, unspecified; B35.1 Tinea unguium
CPT/HCPCS: 99214

== ENCOUNTER 2023-05-08 10:00 | Outpatient (REF) | payer OTHER, SELFPAY ==
--- NOTE | ~2023-05-08 | MM_ITS ---
EXAMINATION: MM SCREENING DIGITAL BREAST TOMOSYNTHESIS, BILATERAL CLINICAL INFORMATION: Screening. Asymptomatic. The patient is status post bilateral breast reduction. COMPARISON: Mammography: This study is compared with prior exams dating back to TECHNIQUE: Digital breast tomosynthesis is performed in both the craniocaudal and mediolateral oblique views along with computer-aided detection (CAD). Synthesized 2D images are generated from the tomosynthesis. FINDINGS: The breasts are heterogeneously dense, which may obscure small masses (ACR BI-RADS breast composition Category c). There are no significant masses, abnormal calcifications, or other abnormalities. There are bilateral post reduction changes. MM/MM tomosynthesis screening BI IMPRESSION: No mammographic evidence of malignancy. ASSESSMENT: BI-RADS BI-RADS 2 - Benign Findings RECOMMENDATION: Routine annual mammography screening. 1 year F/U This examination should not preclude the clinical evaluation of a suspicious palpable abnormality. This patient's information was entered into a reminder system with a target due date for their next mammogram.
== END 2023-05-08 10:01 | disposition home or self-care (01) ==
LOC: HO.MAMMO 10:00
PROVIDERS: PCP Internal Medicine; Visit Provider Internal Medicine
DX: Z12.31 Encounter for screening mammogram for malignant neoplasm of breast (principal)
CPT/HCPCS: 77063; 77067

== ENCOUNTER → 2023-05-08 10:15 | Outpatient (BNV) | payer OTHER, SELFPAY | PROVIDERS: PCP Internal Medicine; Visit Provider Radiology Diagnostic Radiology | DX: Z12.31 Encounter for screening mammogram for malignant neoplasm of breast (principal) | CPT/HCPCS: 77063; 77067 ==

== ENCOUNTER 2023-05-11 12:42 | Outpatient (REF) | payer OTHER, SELFPAY ==
--- NOTE | ~2023-05-11 | US_ITS ---
EXAMINATION: US RETROPERITONEAL LIMITED (RENAL ONLY) CLINICAL INFORMATION: Calculus of kidney. COMPARISON: Renal ultrasound 10/04/2021. X-ray abdomen KUB 09/23/2018. CT abdomen and pelvis 11/22/2006. Ultrasound abdomen 08/26/2006. TECHNIQUE: Real-time imaging of the kidneys. FINDINGS: RIGHT KIDNEY: 10.7 x 3.6 x 4.6 cm (SAG x AP x TRV). The kidney is normal in size, contour, and echogenicity. Renal cortical thickness is normal. No calculi or focal parenchymal lesions. No hydronephrosis. LEFT KIDNEY: 10.3 x 4.6 x 4.4 cm (SAG x AP x TRV). The kidney is normal in size, contour, and echogenicity. Renal cortical thickness is normal. There is a 3 mm echogenic focus in the lower pole the left kidney consistent with a nonobstructing calculus, similar to prior. No focal parenchymal lesions or hydronephrosis. US/US renal BI IMPRESSION: 3 mm nonobstructing left lower pole renal calculus, unchanged from prior.
== END 2023-05-11 12:43 | disposition home or self-care (01) ==
LOC: HO.US 12:42
PROVIDERS: PCP Internal Medicine; Visit Provider Internal Medicine
DX: N20.0 Calculus of kidney (principal)
CPT/HCPCS: 76775

== ENCOUNTER 2023-06-13 10:00 | Outpatient (AMB) | payer OTHER, SELFPAY ==
[2023-06-13 10:04] VITALS: BP 114/68; PULSE 61; O2SAT 98; BMI 25.2
--- NOTE | 2023-06-13 10:04 | A.OFFPC_ITS ---
Vital Signs 06/13/23 10:04 Height 5 ft 3 in Weight 142 lb BMI 25.2 BP 114/68 Blood Pressure Location Lt brachial Position Sitting Pulse 61 Pulse Source Pulse Oximeter Pulse Oximetry (%) 98 Oxygen Delivery Method Room Air Intake Visit Reasons: Myoma, nephrolithiasis Allergies zaleplon Allergy (Unknown, Verified 06/13/23 10:05) inadequate response zolpidem Allergy (Unknown, Verified 06/13/23 10:05) inadequate response Medication List - Last Reconciled 06/13/23 by Arabella Hawkins MD cholecalciferol (vitamin D3) 25 mcg PO DAILY fluticasone furoate 27.5 mcg/actuation 2 sprays intranasal DAILY 30 days sennosides-docusate sodium 8.6-50 mg (Senna-S) 2 tab-caps (2 x 8.6-50 mg) PO BEDTIME Tobacco use date assessed: 06/13/23 Dental Screening Dental Screen Date: 06/13/23 Did you have a dental visit in the last 12 months?: Yes Did you have a dental problem in the last 6 months where you did not have access to dental care?: No Was dental information given to patient?: Patient has dentist HPI Myoma, nephrolithiasis HPI Details 48-year-old female with history of nephr olithiasis uterine myoma GERD urinary retention last seen in February 2023. Patient's mammogram is up-to-date has the [facility] OB Gynecology and colonoscopy up-to-date November 2021. Review of the notes had an ultrasound of the kidneys in April 2023 showing 3 mm left lower pole renal calculi PFSH Medical History Allergic rhinitis Annual physical exam Anxiety and depression Breast asymmetry Dysuria Encounter for annual routine gynecological examination Fibroid GERD (gastroesophageal reflux disease) Insomnia Right renal stone Strabismus Stress incontinence Swollen eyelid Vaginal discomfort Vaginal irritation Vitamin D deficiency Surgical History H/O abdominoplasty History of breast mammoplasty Family History Mother Hypertension Father Cancer Liver cancer Maternal Aunt Breast cancer Social History Housing: Apartment Alcohol intake: former Patient Tobacco Use Status: Never used Tobacco e-Cigarette/Vaping Use: Never Used Second Hand Smoke Exposure: No service: No Current occupational status: employed Current occupation: Homecare Cognitive needs: No Hearing needs: No Vision needs: Yes Female Reproductive History Menstrual Age of Menarche: 11 Questionnaire PHQ-9 Over the last 2 weeks, how often have you been bothered by any of the following problems? 1. Little interest or pleasure in doing things: not at all 2. Feeling down, depressed, or hopeless: not at all 3. Trouble falling or staying asleep, or sleeping too much: not at all 4. Feeling tired or having little energy: not at all 5. Poor appetite or overeating: not at all 6. Feeling bad about yourself - or that you are a failure or have let yourself or your family down: not at all 7. Trouble concentrating on things, such as reading the newspaper or watching television: not at all 8. Moving or speaking so slowly that other people could have noticed. Or the opposite - being so fidgety or restless that you have been moving around a lot more than usual: not at all 9. Thoughts that you would be better off or of hurting yourself in some way: not at all Total score: 0 Depression Screening Interpretation: Negative Depression Screening Done: Yes Source: Developed by Drs. Trace Saldivar, Merissa Glasgow, Fercho Feng and colleagues, with an educational jeffrey from [employer]. Thrive Questionnaire Date Thrive assessed: 06/13/23 I am a: Patient What is your living situation today?: I have a steady place to live Within the past 12 months, did the food you bought not last and you didn't have the money to get more?: Never true Within the past 12 months, did you worry whether your food would run out before you got money to buy more?: Never true Do you have trouble paying for medicines?: No Do you have trouble getting transportation to medical appointments?: No Do you have trouble paying your heating and electricity bill?: No Do you have trouble taking care of your child, family member or friend?: No Do you have trouble with day-to-day activities such as bathing, preparing meals, shopping, managing finances, etc.?: No Are you currently unemployed and looking for a job?: No Are you interested in more education?: No Currently or been in a relationship where the following occur: no concerns reported THRIVE Score: 0 AUDIT C Alcohol Use Questionnaire (AUDIT-C) 1. How often do you have a drink containing alcohol?: Never 3. How often do you have six or more drinks on one occasion?: Never Total Score: 0 CEZAR-7 AMB Questionnaire CEZAR-7 Date CEZAR - 7 assessed: 06/13/23 Feeling nervous, anxious, or on edge: 0 = Not at all Not being able to stop or control worryin = Not at all Worrying too much about different things: 0 = Not at all Trouble relaxin = Not at all Being so restless that it is hard to sit still: 0 = Not at all Becoming easily annoyed or irritable: 0 = Not at all Feeling afraid as if something awful might happen: 0 = Not at all Total CEZAR-7 score (0-4 normal; 5-9 mild; 10-14 moderate; 15-21 severe): 0 Source: Developed by Drs. Trace Saldivar, Merissa Glasgow, Fercho Feng and colleagues, with an educational jeffrey from [employer]. Physical exam (Primary Care) Vital Signs: Last Vital Signs Pulse 61 06/13/23 10:04 BP 114/68 06/13/23 10:04 Pulse Ox 98 06/13/23 10:04 Oxygen Delivery Method Room Air 06/13/23 10:04 BMI result Body Mass Index 25.2 Tobacco/Smoking Status: Tobacco use Status Tobacco use date assessed 06/13/23 06/13/23 10:06 Patient Tobacco Use Status Never used Tobacco 06/13/23 10:06 e-Cigarette/Vaping Use Never Used 06/13/23 10:06 PHQ-9: PHQ-9 Score PHQ-9: Total score 0 06/13/23 10:25 Depression Screening Interpretation: Negative Thrive Assessment: Date of Thrive Assessment Date Thrive assessed 06/13/23 06/13/23 10:06 Currently or been in a relationship where the following occur: no concerns reported Const General: alert; No acute distress Eyes Conjunctivae: conjunctivae normal Resp Auscultation: clear to auscultation bilaterally Cardio Rate: regular rate Rhythm: regular rhythm GI Inspection: Yes normal to inspection Extrem General: Yes normal to inspection and No edema Assessment and Plan Assessment & Plan (1) Nephrolithiasis: Comment: April 2023 left renal pole calculus Code(s): N20.0 - Calculus of kidney Plan: Keep well hydrated. will refer to Urology (2) Uterine myoma: Comment: 2022 Uterine Fibroid embolization Code(s): D25.9 - Leiomyoma of uterus, unspecified Plan: Advised to follow-up with gynecology. did the embolization and was told good (3) GERD (gastroesophageal reflux disease): Comment: With esophageal dysmotility Code(s): K21.9 - Gastro-esophageal reflux disease without esophagitis Qualifiers: Esophagitis presence: without esophagitis Qualified Code(s): K21.9 - Gastro-esophageal reflux disease without esophagitis Plan: Avoid the foods that causes that usually spicy foods, tomato products, juices, coffee, soda and foods that your sensitive to. After eating do not lie down, allow 3-4 hours before in lie down. And keep the head of bed above 30 degrees to avoid the acid from going up. (4) Onychomycosis: Code(s): B35.1 - Tinea unguium Plan: resolved (5) Eczema: Code(s): L30.9 - Dermatitis, unspecified Orders: Orders Complete Blood Count Auto Diff 2 Months N20.0 - Calculus of kidney Comprehensive Met. Panel 2 Months N20.0 - Calculus of kidney Free T4 (Free Thyroxine) 2 Months N20.0 - Calculus of kidney Lipid Panel 2 Months E78.00 - Pure hypercholesterolemia, unspecified, N20.0 - Calculus of kidney Thyroid Stimulating Hormone 2 Months N20.0 - Calculus of kidney Vitamin B12 and Folate 2 Months N20.0 - Calculus of kidney Vitamin D 25-OH Total 2 Months N20.0 - Calculus of kidney Referrals Urology Referral N20.0 - Calculus of kidney Medications: New triamcinolone acetonide 0.5% 1 appl topical BID 45 grams 0RF L30.9 - Dermatitis, unspecified Refilled sennosides-docusate sodium 8.6-50 mg (Senna-S) 2 tab-caps (2 x 8.6-50 mg) PO BEDTIME 60 tabs 3RF K59.00 - Constipation, unspecified Discontinued ciclopirox 0.77% Discontinued Reason: Patient Completed Course 1 appl topical BID 4 weeks 30 grams 0RF B35.1 - Tinea unguium Coding Level of Care Code Est Pt Level 4 (36130) Diagnoses Nephrolithiasis N20.0 Uterine myoma D25.9 Gastroesophageal reflux disease without esophagitis K21.9 Esophagitis presence: without esophagitis Onychomycosis B35.1 Eczema L30.9
== END 2023-06-13 10:53 | disposition home or self-care (01) ==
PROVIDERS: PCP Internal Medicine; Visit Provider Internal Medicine
DX: N20.0 Calculus of kidney (principal); D25.9 Leiomyoma of uterus, unspecified; K21.9 Gastro-esophageal reflux disease without esophagitis; B35.1 Tinea unguium; L30.9 Dermatitis, unspecified
CPT/HCPCS: 99214

== ENCOUNTER 2023-07-23 20:19 | Emergency (ER) | payer OTHER, SELFPAY ==
--- NOTE | ~2023-07-23 | XR_ITS ---
EXAMINATION: XR SOFT TISSUE NECK CLINICAL INDICATION: Question food bolus COMPARISON: None available. TECHNIQUE: 2 views of the soft tissue neck were obtained. FINDINGS: Soft tissue films of the neck demonstrate a normal larynx, pharynx and upper trachea. No soft tissue swelling or opaque foreign body is demonstrated. Some minimal degenerative changes are seen in the spine with some mild narrowing at C5-C6 and C6-C7 with some mild endplate changes. XR/XR soft tissue neck IMPRESSION: Mild degenerative changes in the spine.
[2023-07-23 20:21] VITALS: BP 143/118; PULSE 102; RESP 18; TEMP 36.4; O2SAT 100; BMI 24.8
--- NOTE | 2023-07-23 20:22 | ED.SKABFB ---
HPI - Skin/Abscess/Foreign Bdy General Chief complaint: General Medical Stated complaint: feels food stuck in throat, breathing ok Time Seen by Provider: 07/23/23 22:38 Source: patient Mode of arrival: ambulatory Limitations: no limitations History of Present Illness HPI narrative: 48-year-old female who presents emergency department for evaluation of difficulty swallowing. Patient states that on Sunday (4 days prior) she ate pizza and calamari. She states that she felt like a piece of pizza and calmari got stuck in her throat. She states initially she had difficulty swallowing but then was able to swallow but did vomit up food which she feels got stuck in the back of her throat. She states that since that time every time she swallows she has pain with swallowing. She states that food seems to catch in her throat but she can swallow the food without vomiting. She has had no difficulty swallowing liquids. She states that prior to this event she had no difficulty swallowing food or liquids. She has not had any weight loss or weight gain. She denied being ill in any other way, she denied fever, chills, chest pain, shortness of breath. Related Data Home Medications ?Medication ?Instructions ?Recorded ?Confirmed cholecalciferol (vitamin D3) 25 25 mcg PO DAILY 10/10/22 06/13/23 mcg (1,000 unit) capsule Previous Rx's ?Medication ?Instructions ?Recorded fluticasone furoate 27.5 2 spray intranasal DAILY 30 days 10/27/22 mcg/actuation nasal #27.3 mL spray,suspension sennosides 8.6 mg-docusate sodium 2 tab-cap (2 x 8.6-50 mg) PO 06/13/23 50 mg tablet (Senna-S) BEDTIME #60 tabs triamcinolone acetonide 0.5 % 1 appl topical BID #45 grams 06/13/23 topical cream aluminum hydrox-magnesium carb 254 10 ml PO QID PRN dyspepsia #355 mL 07/23/23 mg-237.5 mg/5 mL oral suspension (Gaviscon Extra Strength) omeprazole 20 mg capsule,delayed 20 mg PO DAILY 30 days #30 caps 07/23/23 release Allergies Allergy/AdvReac Type Severity Reaction Status Date / Time zaleplon Allergy Unknown inadequate Verified 06/13/23 10:05 response zolpidem Allergy Unknown inadequate Verified 06/13/23 10:05 response Review of Systems Review of Systems: Yes all other systems are reviewed and are negative [facility] Past Medical History [facility] Narrative: Social history: She denies tobacco, alcohol and drug use. Medical History Vaginal irritation Encounter for annual routine gynecological examination Dysuria Vaginal discomfort Swollen eyelid Fibroid Annual physical exam Strabismus Insomnia Anxiety and depression Right renal stone Stress incontinence GERD (gastroesophageal reflux disease) Allergic rhinitis Vitamin D deficiency Breast asymmetry Surgical History History of breast mammoplasty H/O abdominoplasty Family History Family History Mother Hypertension Father Cancer Liver cancer Maternal Aunt Breast cancer Social History Social History Housing: Apartment Alcohol intake: former Patient Tobacco Use Status: Never used Tobacco e-Cigarette/Vaping Use: Never Used Second Hand Smoke Exposure: No service: No Current occupational status: employed Current occupation: Homecare Cognitive needs: No Hearing needs: No Vision needs: Yes Physical Exam Vital Signs: Vital Signs: Last Vital Signs Temp 98.6 F 07/23/23 22:30 Pulse 69 07/23/23 22:30 Resp 18 07/23/23 22:30 BP 154/63 H 07/23/23 22:30 Pulse Ox 100 07/23/23 22:30 O2 Del Method Room Air 07/23/23 22:30 BMI result Body Mass Index 24.8 Vital signs revealed an elevated blood pressure of 154/63. Exam: General: Awake, alert in no distress Head: Normocephalic, atraumatic EENT: PERRL, mouth revealed moist membranes, uvula is midline, no erythema or exudates Neck: Supple, no adenopathy, no palpable masses Abdomen: soft, non-tender, nondistended, normal bowel sounds Psych: Pleasant, cooperative Course Course Course Narrative: RME- 20:22pm - 48-year-old female presenting to the ER with complaints of ?I feel like I have something stuck in my throat?. She reports over the weekend she ate calamari and pizza and since then she has been feeling like she has something stuck in her throat. She is not having any trouble swallowing, trismus, drooling, changes in voice or any other symptoms related to his although every time she swallows she feels like there is something there. She reports she has never had trouble with food boluses or feeling these symptoms in the past. She denies any other injuries complaints or concerns Plan: Will obtain soft tissue neck. Although patient on exam she is tolerating p.o. fluids no trismus/drooling/stridor. Patient will be sent back to the waiting room to be evaluated in [facility]. Medications Administered Discontinued Medications Generic Name Dose Route Start Last Admin Trade Name Freq PRN Reason Stop Dose Admin Al Hydroxide/Mg Hydroxide 30 ml 07/23/23 22:55 07/23/23 22:59 Magnesium Hydrox/Alum Hydrox 30 Ml Oral.Susp PO 07/23/23 22:56 30 ml ONCE STA Administration Belladonna Alkaloids/Phenobarbital 10 ml 07/23/23 22:55 07/23/23 23:00 Phenobarb/Hyoscy/Atropine/Scop 10 Ml Elixir PO 07/23/23 22:56 10 ml ONCE ONE Administration Lidocaine HCl 10 ml 07/23/23 22:55 07/23/23 23:00 Lidocaine Hcl Viscous 2 % 15 Ml Solution PO 07/23/23 22:56 10 ml ONCE ONE Administration Medical Decision Making Medical Decision Making [facility] Narrative: 48-year-old female who presents emergency department for evaluation of difficulty swallowing. Patient states that on Sunday (4 days prior) she ate pizza and calamari and piece of pizza and calmari got stuck in her throat. She states she did vomiting up food and had a very ask the taste in the back of her throat. She states that since that event she has had pain and feels like food gets stuck in her throat. She has not had any vomiting. She states that she has no difficulty swallowing his secretions and can swallow liquids without difficulty. Vital signs were normal except for an elevated blood pressure. Physical examination was unremarkable. Differential diagnosis: ?Includes but is not limited to food bolus obstruction, esophageal stricture, acid reflux, inflammation Following evaluation was ordered: Two-view soft tissue of the neck Patient was initially treated with the following: Viscous lidocaine 10 cc, 10 cc and Maalox 10 cc orally Course: Patient's physical examination was unremarkable, she was able to swallow liquids without any difficulty suggesting that she has not have a food bolus obstruction at this time. Two-view soft tissue neck was unremarkable. I suspect that the patient has inflammation or throat most likely secondary to esophagitis. Patient was started on Prilosec 20 mg once a day and extra-strength Gaviscon 10 mL 3 times a day for 5 days then as needed. She was given printed and verbal instructions discharged home. Independent Interpretation I performed an independent interpretation of an: Plain X-Ray Interpretation: My interpretation the patient's two view soft tissue of the neck is as follows: No acute findings, no foreign body seen Radiology Impression Discussion of test interpretation with radiology: I have reviewed the radiologist's reading. Radiologist Impression: EXAMINATION: XR SOFT TISSUE NECK CLINICAL INDICATION: Question food bolus COMPARISON: None available. FINDINGS: Soft tissue films of the neck demonstrate a normal larynx, pharynx and upper trachea. No soft tissue swelling or opaque foreign body is demonstrated. Some minimal degenerative changes are seen in the spine with some mild narrowing at C5-C6 and C6-C7 with some mild endplate changes. IMPRESSION: Mild degenerative changes in the spine. Dictated By: Uriel Rose MD Prescription Management I considered prescription management with: Other (H2 vianca-Prilosec) Discharge Plan Discharge Clinical Impression: Esophagitis Patient Disposition: Home, Self-Care Instructions: Esophagitis (ED) Additional Instructions: Since you can swallow liquids and solids I do not think that there is food stuck in your throat. You most likely have inflammation in your throat secondary to acid from your stomach going onto your esophagus. This is called esophagitis. Take Prilosec (omeprazole) 20 mg pills, 1 pill once a day for 1 month. ?This medication shuts off your acid production and lets the inflammation in your stomach and esophagus heal. Take extra-strength Gaviscon 10 mL (2 tsp) 3 times a day for 5 days then as needed for esophageal pain, difficulty swallowing. Follow-up with your doctor in 2 days. Please return to the emergency department if your symptoms get worse or if you develop any symptoms that are concerning to you. Prescriptions: New omeprazole 20 mg capsule,delayed release(DR/EC) 20 mg PO DAILY 30 Days Qty: 30 0RF Gaviscon Extra Strength 254-237.5 mg/5 mL suspension 10 ml PO QID PRN (Reason: dyspepsia) Qty: 355 0RF No Action fluticasone furoate 27.5 mcg/actuation spray,suspension 2 spray intranasal DAILY 30 Days Qty: 27.3 11RF Rx Instructions: into each nostril sennosides-docusate sodium [Senna-S] 8.6-50 mg tablet 2 tab-cap PO BEDTIME Qty: 60 3RF triamcinolone acetonide 0.5 % cream 1 appl topical BID Qty: 45 0RF cholecalciferol (vitamin D3) 25 mcg (1,000 unit) capsule 25 mcg PO DAILY Discharge Date/Time: 07/23/23 23:27 Print Language: Maltese
[2023-07-23 22:30] VITALS: BP 154/63; PULSE 69; RESP 18; TEMP 37; O2SAT 100
[2023-07-23] MEDS: Magnesium Hydrox/Alum Hydrox 30 ML ORAL.SUSP PO (22:59)
[2023-07-23] MEDS: Lidocaine HCl Viscous 2 % 15 ML SOLUTION 10 ML PO (23:00)
[2023-07-23] MEDS: PHENobarb/Hyoscy/Atropine/Scop 10 ML ELIXIR PO (23:00)
== END 2023-07-23 23:27 | disposition home or self-care (01) ==
PROVIDERS: Emergency Provider Emergency Medicine Emergency Medical Services
DX: K20.90 Esophagitis, unspecified without bleeding (principal)
CPT/HCPCS: 70360; 99283

== ENCOUNTER 2024-05-12 09:41 | Outpatient (REF) | payer OTHER, SELFPAY | END 2024-05-12 09:42 | disposition home or self-care (01) | LOC: HO.MAMMO 09:41 | PROVIDERS: PCP Internal Medicine; Visit Provider Internal Medicine | DX: Z12.31 Encounter for screening mammogram for malignant neoplasm of breast (principal) | CPT/HCPCS: 77063; 77067 ==

== ENCOUNTER → 2024-05-12 10:00 | Outpatient (BNV) | payer OTHER, SELFPAY | PROVIDERS: PCP Internal Medicine; Visit Provider Internal Medicine | DX: Z12.31 Encounter for screening mammogram for malignant neoplasm of breast (principal) | CPT/HCPCS: 77063; 77067 ==

== ENCOUNTER 2024-06-12 08:24 | Outpatient (AMB) | payer OTHER, SELFPAY ==
--- NOTE | 2024-06-12 08:32 | MHC.PC.OV ---
Vital Signs 06/12/24 08:34 Height 5 ft 3 in Weight 155 lb 6 oz BMI 27.5 BP 120/68 Blood Pressure Location Lt brachial Position Sitting Pulse 70 Pulse Source Pulse Oximeter Temp 96.9 F Temp Source Skin Pulse Oximetry (%) 90 L Oxygen Delivery Method Room Air Intake Visit Reasons: PE Intake Note: Patient is here today for a physical. Pt decline flu shot today. Supplier Engineer Required: No Hose Coupling Joiner: Present Accompanied by: Spouse Allergies zaleplon Allergy (Unknown, Verified 06/12/24 08:50) inadequate response zolpidem Allergy (Unknown, Verified 06/12/24 08:50) inadequate response Medication List - Last Reconciled 06/12/24 by Dia Blackwell PA-C fluticasone furoate 27.5 mcg/actuation 2 sprays intranasal DAILY 30 days Tobacco use date assessed: 06/12/24 Dental Screening Dental Screen Date: 06/12/24 Did you have a dental visit in the last 12 months?: No Did you have a dental problem in the last 6 months where you did not have access to dental care?: No Was dental information given to patient?: No HPI PE HPI Details 49-year-old female with past medical history of GERD, urinary retention, nephrolithiasis, uterine myoma last seen by Dr. Hawkins 05/2023 coming in for annual exam. Today she tells us she had a fibroid removed with [facility] last year and continues to follow with their gynecology department we will have appointment this year for annual Pap smear. Her mammogram was completed 04/2024, colonoscopy completed 2021 to be due in 10 years. She is concerned she has right knee pain that started about 1 month ago without any falls but feels unsteady on this knee. She feels the knee will occasionally give out underneath her. She also mentions having chest tightness only at night that will last a few minutes and sometimes can massage the chest pain away. The chest pain is reproducible and is associated with a headache. She only has this chest pain and headache at nighttime and the headache will last sometimes through the night and into the morning. The headache and chest pain also began 1 month ago and is not associated with any other symptoms. [facility] Medical History Vaginal irritation Encounter for annual routine gynecological examination Dysuria Vaginal discomfort Swollen eyelid Fibroid Annual physical exam Strabismus Insomnia Anxiety and depression Right renal stone Stress incontinence GERD (gastroesophageal reflux disease) Allergic rhinitis Vitamin D deficiency Breast asymmetry Surgical History History of breast mammoplasty H/O abdominoplasty Family History Mother Hypertension Father Cancer Liver cancer Maternal Aunt Breast cancer Social History Housing: Apartment Alcohol intake: former Patient Tobacco Use Status: Never used Tobacco e-Cigarette/Vaping Use: Never Used Second Hand Smoke Exposure: No service: No Current occupational status: employed Current occupation: Homecare Cognitive needs: No Hearing needs: No Vision needs: Yes Female Reproductive History Menstrual Age of Menarche: 11 Questionnaire PHQ-9 Over the last 2 weeks, how often have you been bothered by any of the following problems? 1. Little interest or pleasure in doing things: not at all 2. Feeling down, depressed, or hopeless: not at all 3. Trouble falling or staying asleep, or sleeping too much: not at all 4. Feeling tired or having little energy: not at all 5. Poor appetite or overeating: not at all 6. Feeling bad about yourself - or that you are a failure or have let yourself or your family down: not at all 7. Trouble concentrating on things, such as reading the newspaper or watching television: not at all 8. Moving or speaking so slowly that other people could have noticed. Or the opposite - being so fidgety or restless that you have been moving around a lot more than usual: not at all 9. Thoughts that you would be better off or of hurting yourself in some way: not at all Total score: 0 Depression Screening Interpretation: Negative Depression Screening Done: Yes Source: Developed by Drs. Trace Saldivar, Merissa Glasgow, Fercho Feng and colleagues, with an educational jeffrey from [employer]. Thrive Questionnaire Date Thrive assessed: 06/12/24 I am a: Patient What is your living situation today?: I choose not to answer this question Within the past 12 months, did the food you bought not last and you didn't have the money to get more?: I choose not to answer this question Within the past 12 months, did you worry whether your food would run out before you got money to buy more?: I choose not to answer this question Do you have trouble paying for medicines?: I choose not to answer this question Do you have trouble getting transportation to medical appointments?: I choose not to answer this question Do you have trouble paying your heating and electricity bill?: I choose not to answer this question Do you have trouble taking care of your child, family member or friend?: I choose not to answer this question Do you have trouble with day-to-day activities such as bathing, preparing meals, shopping, managing finances, etc.?: I choose not to answer this question Are you currently unemployed and looking for a job?: I choose not to answer this question Are you interested in more education?: I choose not to answer this question Please select the resources that you would like help with: None Currently or been in a relationship where the following occur: I choose not to answer THRIVE Score: 0 AUDIT C Alcohol Use Questionnaire (AUDIT-C) 1. How often do you have a drink containing alcohol?: Never Total Score: 0 CEZAR-7 AMB Questionnaire CEZAR-7 Date CEZAR - 7 assessed: 06/12/24 Feeling nervous, anxious, or on edge: 0 = Not at all Not being able to stop or control worryin = Not at all Worrying too much about different things: 0 = Not at all Trouble relaxin = Not at all Being so restless that it is hard to sit still: 0 = Not at all Becoming easily annoyed or irritable: 0 = Not at all Feeling afraid as if something awful might happen: 0 = Not at all Total CEZAR-7 score (0-4 normal; 5-9 mild; 10-14 moderate; 15-21 severe): 0 Source: Developed by Drs. Trace Saldivar, Merissa Glasgow, Fercho Feng and colleagues, with an educational jeffrey from [employer]. Review of Systems Const Denies body aches, Denies fatigue, Denies fever(s), Denies frequent falls, Reports headache(s) and Denies weakness Eyes Reports no additional complaints and Denies change in vision ENT Denies dysphagia, Denies dizziness, Denies facial pain, Reports headache(s), Denies nasal congestion and Denies odynophagia Card Reports chest pain, Denies syncope, Denies irregular heart rhythm, Denies leg edema, Denies lightheadedness and Denies dyspnea Resp Denies cough and Denies dyspnea GI Denies abdominal pain, Denies constipation, Denies dysphagia, Denies dyspepsia, Denies diarrhea, Denies nausea, Denies odynophagia and Denies vomiting Denies urinary frequency, Denies dysuria, Denies urinary hesitancy and Denies urinary urgency Musc Denies back pain and Denies myalgias Skin/Breast Reports system reviewed and no additional complaints, except as documented Neuro Denies dizziness, Denies syncope, Denies frequent falls, Reports headache(s) and Denies weakness Psych Reports no additional complaints Endo Denies fatigue Physical exam (Primary Care) Vital Signs: Last Vital Signs Temp 96.9 F 06/12/24 08:34 Pulse 70 06/12/24 08:34 BP 120/68 06/12/24 08:34 Pulse Ox 90 L 06/12/24 08:34 Oxygen Delivery Method Room Air 06/12/24 08:34 BMI result Body Mass Index 27.5 Tobacco/Smoking Status: Tobacco use Status Tobacco use date assessed 06/12/24 06/12/24 08:40 Patient Tobacco Use Status Never used Tobacco 06/12/24 08:40 e-Cigarette/Vaping Use Never Used 06/12/24 08:40 PHQ-9: PHQ-9 Score PHQ-9: Total score 0 06/12/24 09:17 Depression Screening Interpretation: Negative Thrive Assessment: Date of Thrive Assessment Date Thrive assessed 06/12/24 06/12/24 08:40 Currently or been in a relationship where the following occur: I choose not to answer Const General: cooperative, healthy appearing, comfortable and no acute distress Orientation/consciousness: patient oriented x3 HENMT Head: Yes normocephalic Ears: hearing grossly normal bilaterally, external ears normal, TM's normal bilaterally and EAC's normal General nose exam: Normal external nose present Face and sinus: Yes normal facial exam and Yes sinuses nontender Mouth: Normal oral and palatal mucosa present and tongue normal Throat: Yes posterior oropharynx normal Eyes General: appearance normal, both eyes and all related structures Conjunctivae: conjunctivae normal Pupils: Equal, round and reactive pupils present EOM: EOMs intact bilaterally and No Nystagmus present Neck Neck: Yes normal visual inspection, Yes full ROM and Yes no lymphadenopathy Chest Chest palpation & inspection: normal inspection of the chest Resp Effort & Inspection: normal respiratory effort Auscultation: clear to auscultation bilaterally, no crackles, no rales, no rhonchi, no wheezes and breath sounds present Cardio Rate: regular rate Rhythm: regular rhythm Peripheral pulses: radial pulses present and dorsalis pedis present GI Inspection: Yes normal to inspection and No Abdominal wall edema Palpation (GI): Soft to palpation, not firm and nontender Auscultation: normal bowel sounds Rectal Exam - Female: deferred General: Yes no CVA tenderness Back/Spine/Pelvis Back: no CVA tenderness Skin General skin exam: no rashes or lesions noted Neuro General: patient oriented x3 Cranial nerves: Yes Equal, round and reactive pupils present, Yes Midline tongue present, Yes Ability to bilaterally elevate shoulders present and No Nystagmus present Gait exam (Neuro): Normal gait present Extrem General: Yes normal to inspection, Yes full ROM, No no pedal edema and No edema Psych Speech and movement: Normal speech and movement present Affect: normal affect Insight: Good insight present (Psych) Judgement: Good judgement present (Psych) Coding Level of Care Code Est Pt Level 4 (15163) Est Pt Prev Care 40-64y(46719) Diagnoses Right knee pain M25.561 Chest pain R07.9 Eczema L30.9 Nephrolithiasis N20.0 Constipation K59.00 Annual physical exam Z00.00 Peripheral vascular disease I73.9 Uterine myoma D25.9 Diverticulosis of colon K57.30 Mixed incontinence N39.46 Gastroesophageal reflux disease without esophagitis K21.9 Esophagitis presence: without esophagitis Headache R51.9 Assessment & Plan Assessment & Plan (1) Right knee pain: Code(s): M25.561 - Pain in right knee Category: Medical Plan: Patient complaining of right knee pain and feeling like knee will give out underneath her. Ordered for right knee x-ray advised patient to use Tylenol and ibuprofen as needed for pain and activity as tolerated. Can consider referral to orthopedics or physical therapy. (2) Chest pain: Code(s): R07.9 - Chest pain, unspecified Category: Medical Plan: Patient complaining of nocturnal chest pain that typically resolves spontaneously after a few minutes and is reproducible. The pain can sometimes be massaged away but is consistently every night. Possibly concern for GERD but we will order chest x-ray and EKG to rule out other etiologies. Also ordered for blood work to look for underlying cause. Denies any chest pain with exertion or shortness of breath with the chest pain and denies any palpitations. (3) Eczema: Code(s): L30.9 - Dermatitis, unspecified Category: Medical Plan: Continue to use topical emollients as needed. (4) Nephrolithiasis: Comment: April 2023 left renal pole calculus Code(s): N20.0 - Calculus of kidney Category: Medical Plan: Stay well hydrated, denying any symptoms at this time. (5) Constipation: Code(s): K59.00 - Constipation, unspecified Category: Medical Plan: Deny any constipation at this time advised patient to stay well hydrated and eat fiber rich foods. (6) Annual physical exam: Code(s): Z00.00 - Encounter for general adult medical examination without abnormal findings Category: Medical Plan: Patient is up-to-date on all recommended routine screenings and vaccinations for her age. Ordered for updated blood work. Healthy diet and regular exercise is encouraged. (7) Peripheral vascular disease: Code(s): I73.9 - Peripheral vascular disease, unspecified Category: Medical Plan: Advised good control of blood pressure, cholesterol and blood sugars. Ordered for updated blood work. (8) Uterine myoma: Comment: 2022 Uterine Fibroid embolization Code(s): D25.9 - Leiomyoma of uterus, unspecified Category: Medical Plan: Has been following with [facility] gynecology recently had a fibroid removal 2023. Continue to follow with gynecology (9) Diverticulosis of colon: Code(s): K57.30 - Diverticulosis of large intestine without perforation or abscess without bleeding Category: Medical Plan: Colonoscopy up-to-date continue to follow with routine colonoscopies. Avoid constipation. (10) Mixed incontinence: Code(s): N39.46 - Mixed incontinence Category: Medical Plan: Symptoms are well managed without medical management at this time. (11) GERD (gastroesophageal reflux disease): Comment: With esophageal dysmotility Code(s): K21.9 - Gastro-esophageal reflux disease without esophagitis Category: Medical Qualifiers: Esophagitis presence: without esophagitis Qualified Code(s): K21.9 - Gastro-esophageal reflux disease without esophagitis Plan: Avoid trigger foods such as citrus, tomato products, soda, caffeine, spicy foods and other foods that may be irritating to your stomach. Avoid laying flat 3-4 hours after eating and elevate the head of the bed 30 degrees to prevent acid from moving into the esophagus. Not currently on medical management. GERD may be responsible for her nocturnal chest pain however given this began 1 month ago and presents with a headache and chest pain we will rule out other etiologies 1st. Patient denies any GERD symptoms throughout the day. (12) Headache: Code(s): R51.9 - Headache, unspecified Category: Medical Plan: Patient complaining of nocturnal headache that will sometimes last throughout the night into the morning. Describes the headache as frontal and we will occasionally have scalp tenderness. Advised patient to have eye evaluation as it may be related to vision. Also encouraged patient's stay well hydrated as she states she does not drink water enough. Ordered for updated blood work look for underlying cause as well. Denying medication management at this time. Plan This note was constructed using voice recognition software. While every effort has been made to ensure accuracy and tanner rotary drum continuous process, still areas may have been included sometimes these areas may affect the content or meeting of the given symptoms. Total time spent caring for the patient today was 30 minutes. This includes time spent before the visit reviewing the chart, time spent during the visit, and time spent after the visit and documentation. Orders: Orders Complete Blood Count Auto Diff Today N20.0 - Calculus of kidney Free T4 (Free Thyroxine) Today N20.0 - Calculus of kidney Lipid Panel Today E78.00 - Pure hypercholesterolemia, unspecified, N20.0 - Calculus of kidney Vitamin B12 and Folate Today N20.0 - Calculus of kidney Vitamin D 25-OH Total Today N20.0 - Calculus of kidney ECG 12 lead EKG Today R07.9 - Chest pain, unspecified XR knee RT 2V Today M25.561 - Pain in right knee Comprehensive Met. Panel Today N20.0 - Calculus of kidney Thyroid Stimulating Hormone Today N20.0 - Calculus of kidney XR chest 2V Today R07.9 - Chest pain, unspecified
[2024-06-12 08:34] VITALS: BP 120/68; PULSE 70; TEMP 36.1; O2SAT 90; BMI 27.5
== END 2024-06-12 09:22 | disposition home or self-care (01) ==
PROVIDERS: PCP Internal Medicine
DX: Z00.00 Encounter for general adult medical examination without abnormal findings (principal); M25.561 Pain in right knee; R07.9 Chest pain, unspecified; I73.9 Peripheral vascular disease, unspecified; L30.9 Dermatitis, unspecified; N20.0 Calculus of kidney; K59.00 Constipation, unspecified; D25.9 Leiomyoma of uterus, unspecified; K57.30 Diverticulosis of large intestine without perforation or abscess without bleeding; N39.46 Mixed incontinence; K21.9 Gastro-esophageal reflux disease without esophagitis; R51.9 Headache, unspecified

== ENCOUNTER 2024-06-12 08:24 | Outpatient (REF) | payer OTHER, SELFPAY ==
--- NOTE | ~2024-06-12 | XR_ITS ---
EXAMINATION: XR KNEE 1-2 VIEWS RIGHT HISTORY: M25.561 - Pain in right knee COMPARISON: There are no prior studies available for comparison. FINDINGS: AP and lateral views of the right knee are submitted. Osseous mineralization is normal. There is no fracture or dislocation. The joint spaces are preserved. The soft tissues are unremarkable. XR/XR knee RT 2V IMPRESSION: Unremarkable examination of the right knee. Electronically signed by: Trace Osorio MD 06/12/2024 10:26 AM [facility]
--- NOTE | ~2024-06-12 | XR_ITS ---
EXAMINATION: XR CHEST 2 VIEWS HISTORY: R07.9 - Chest pain, unspecified COMPARISON: Comparison is made with the prior examination dated 03/06/2016. FINDINGS: PA and lateral views of the chest are submitted. The lungs are expanded and clear. There is no pleural effusion, pneumothorax, or pulmonary vascular congestion. The heart is normal in size. There is degenerative disc disease of the spine. XR/XR chest 2V IMPRESSION: No acute cardiopulmonary abnormality. Electronically signed by: Trace Osorio MD 06/12/2024 10:27 AM [facility]
--- NOTE | 2024-06-12 09:32 | ECG_ITS ---
Test Reason : CHEST PAIN Blood Pressure : */* mmHG Vent. Rate : 61 BPM Atrial Rate : 61 BPM P-R Int : 138 ms QRS Dur : 84 ms QT Int : 400 ms P-R-T Axes : 62 87 61 degrees QTcB Int : 402 ms Normal sinus rhythm Normal ECG When compared with ECG of 10-Jan-2009 15:45, MANUAL COMPARISON REQUIRED PREVIOUS ECG IS INCOMPATIBLE Referred By: Dia Blackwell Electronically Signed By: ALLAN PETERSEN MD
[2024-06-12 09:57] LABS: MANUAL DIFF FLAG NO
[2024-06-12 10:29] LABS: Basophils Absolute Auto 0.1 X10*3/uL (0.0-0.2); Basophils Percent Auto 0.9 % (0-2); Eosinophils Absolute Auto 0.1 X10*3/uL (0.0-0.4); Eosinophils Percent Auto 1.8 % (0-4); Hematocrit 40.2 % (37.0-47.0); Hemoglobin 13.6 g/dl (12.0-16.0); Imm Gran Abs Auto 0.02 X10*3/uL (0.00-0.03); Imm Gran Pct Auto 0.4 % (0.0-0.4); Lymphocytes Absolute Auto 1.7 X10*3/uL (1.2-4.9); Lymphocytes Percent Auto 30.4 % (20-40); Mean Corpuscular HGB Conc 33.8 g/dl (31.0-35.0); Mean Corpuscular Hemoglobin 32.6 pg (27.0-33.0); Mean Corpuscular Volume 96.4 fL (80.0-98.0); Mean Platelet Volume 10.1 fL (9.4-12.3); Monocytes Absolute Auto 0.4 X10*3/uL (0.1-1.2); Monocytes Percent Auto 7.9 % (2-11); Neutrophils Absolute Auto 3.3 x10*3/uL (2.0-8.3); Neutrophils Percent Auto 58.6 % (45-73); Platelet Count 334 X10*3/uL (160-400); Red Blood Count 4.17 X10*6/uL (4.20-5.50); Red Cell Distribution Width 12.2 % (11.0-16.0); White Blood Count 5.6 X10*3/uL (4.8-10.8)
[2024-06-12 11:06] LABS: Alanine Aminotransferase 16 U/L (0-31); Albumin Level 4.3 g/dL (3.5-5.0); Alkaline Phosphatase 59 U/L (39-117); Anion Gap 10 (12-20); Aspartate Amino Transferase 19 U/L (5-31); Bilirubin Total 0.9 mg/dL (0.0-1.0); Blood Urea Nitrogen 15 mg/dL (9-16); Calcium 9.9 mg/dL (8.4-10.2); Carbon Dioxide 29 mmol/L (22-29); Chloride 108 mmol/L (96-108); Cholesterol 184 mg/dL (<200); Estimated Glomerular Filt Rate > 60; Free T4 (Free Thyroxine) 0.95 ng/dL (0.71-1.85); Glucose Random 94 mg/dL (60-115); HDL Cholesterol 52 mg/dL (>40); LDL Cholesterol Calculated 118 mg/dL (<100); Potassium 4.5 mmol/L (3.3-5.1); Sodium 142 mmol/L (135-145); Thyroid Stimulating Hormone 2.19 uIU/mL (0.32-4.0); Total Protein 7.9 g/dL (6.5-8.0); Triglycerides 73 mg/dL (<150); Vitamin D 25-OH Total 27.5 ng/mL (>30)
[2024-06-12 11:17] LABS: Folate 13.4 ng/mL (> or = 4.0); Vitamin B12 563 pg/mL (200-900)
== END 2024-06-12 08:25 | disposition home or self-care (01) ==
LOC: HO.XRAY 08:24
PROVIDERS: PCP Internal Medicine
DX: Z00.00 Encounter for general adult medical examination without abnormal findings (principal); M25.561 Pain in right knee; R07.9 Chest pain, unspecified; L30.9 Dermatitis, unspecified; N20.0 Calculus of kidney; K59.00 Constipation, unspecified; I73.9 Peripheral vascular disease, unspecified; K57.30 Diverticulosis of large intestine without perforation or abscess without bleeding; N39.46 Mixed incontinence; K21.9 Gastro-esophageal reflux disease without esophagitis; R51.9 Headache, unspecified; E78.00 Pure hypercholesterolemia, unspecified; Z28.21 Immunization not carried out because of patient refusal
CPT/HCPCS: 36415; 71046; 73560; 80053; 80061; 82306; 82607; 82746; 84439; 84443; 85025; 93005; 96127

== ENCOUNTER → 2024-06-12 09:32 | Outpatient (BNV) | payer OTHER, SELFPAY | PROVIDERS: PCP Internal Medicine; Visit Provider Internal Medicine Cardiovascular Disease | DX: R07.9 Chest pain, unspecified (principal) | CPT/HCPCS: 93010 ==

== ENCOUNTER → 2024-06-12 09:58 | Outpatient (BNV) | payer OTHER, SELFPAY | PROVIDERS: PCP Internal Medicine; Visit Provider Radiology Diagnostic Radiology | DX: R07.9 Chest pain, unspecified (principal); M25.561 Pain in right knee | CPT/HCPCS: 71046; 73560 ==

== ENCOUNTER 2024-09-11 08:10 | Outpatient (AMB) | payer OTHER, SELFPAY ==
--- NOTE | 2024-09-11 08:17 | MHC.PC.OV ---
Vital Signs 09/11/24 08:18 Height 5 ft 3 in Weight 163 lb 8 oz BMI 29.0 BP 120/66 Blood Pressure Location Lt brachial Position Sitting Pulse 77 Pulse Source Pulse Oximeter Temp 97.1 F Temp Source Temporal Artery Scan Pulse Oximetry (%) 94 Oxygen Delivery Method Room Air Intake Visit Reasons: 3 month f/u Intake Note: Patient is here to follow up on PVD, GERD. Felting Machine Operator Helper Required: No Active Directory Specialist: Not Required per policy Accompanied by: Self / Same As Patient Allergies zaleplon Allergy (Unknown, Verified 09/11/24 10:19) inadequate response zolpidem Allergy (Unknown, Verified 09/11/24 10:19) inadequate response Medication List - Last Reconciled 09/11/24 by Dia Blackwell PA-C cholecalciferol (vitamin D3) 25 mcg PO DAILY fluticasone furoate 27.5 mcg/actuation 2 sprays intranasal DAILY 30 days Tobacco use date assessed: 09/11/24 Dental Screening Dental Screen Date: 06/12/24 HPI 3 month f/u HPI Details 49-year-old female with past medical history of GERD, urinary retention, nephrolithiasis, uterine myoma last seen 05/2024 coming in for follow up.? Presenting with postmenopausal bleeding and chest pain. Postmenopausal bleeding began after [id number] months of amenorrhea, spontaneity coinciding with exercise. She has a history of uterine fibroids treated surgically last year. Reports sensation of a significant mass-like feeling internally without prolapsed tissues visible. Bleeding consistent in nature with exacerbation during physical exertion. Last bouts of bleeding were two days ago and the previous day. Additionally, the patient reports nocturnal chest pain devoid of stress-related onset. Chest pain characterized by pressure, lasting a few minutes, predominantly occurring at night or occasionally in the morning. Described as non-radiating and without an identifiable pattern. Chest X-ray and EKG were within normal limits historically, correlating with symptomatic episodes. Knee pain has been improving. [facility] Medical History Vaginal irritation Encounter for annual routine gynecological examination Dysuria Vaginal discomfort Swollen eyelid Fibroid Annual physical exam Strabismus Insomnia Anxiety and depression Right renal stone Stress incontinence GERD (gastroesophageal reflux disease) Allergic rhinitis Vitamin D deficiency Breast asymmetry Surgical History History of breast mammoplasty H/O abdominoplasty Family History Mother Hypertension Father Cancer Liver cancer Maternal Aunt Breast cancer Social History Housing: Apartment Alcohol intake: former Patient Tobacco Use Status: Never used Tobacco e-Cigarette/Vaping Use: Never Used Second Hand Smoke Exposure: No service: No Current occupational status: employed Current occupation: Homecare Cognitive needs: No Hearing needs: No Vision needs: Yes Female Reproductive History Menstrual Age of Menarche: 11 Questionnaire Thrive Questionnaire Date Thrive assessed: 06/12/24 I am a: Patient What is your living situation today?: I choose not to answer this question Within the past 12 months, did the food you bought not last and you didn't have the money to get more?: I choose not to answer this question Within the past 12 months, did you worry whether your food would run out before you got money to buy more?: I choose not to answer this question Do you have trouble paying for medicines?: I choose not to answer this question Do you have trouble getting transportation to medical appointments?: I choose not to answer this question Do you have trouble paying your heating and electricity bill?: I choose not to answer this question Do you have trouble taking care of your child, family member or friend?: I choose not to answer this question Do you have trouble with day-to-day activities such as bathing, preparing meals, shopping, managing finances, etc.?: I choose not to answer this question Are you currently unemployed and looking for a job?: I choose not to answer this question Are you interested in more education?: I choose not to answer this question Please select the resources that you would like help with: None Currently or been in a relationship where the following occur: I choose not to answer THRIVE Score: 0 CEZAR-7 AMB Questionnaire CEZAR-7 Date CEZAR - 7 assessed: 06/12/24 Source: Developed by Drs. Trace Saldivar, Merissa Glasgow, Fercho Feng and colleagues, with an educational jeffrey from [employer]. Review of Systems Const Denies body aches, Denies chills, Denies fever(s), Denies headache(s) and Denies poor appetite Eyes Reports no additional complaints ENT Denies dysphagia, Denies dizziness, Denies headache(s) and Denies odynophagia Card Denies chest pain, Denies syncope, Denies edema, Denies irregular heart rhythm, Denies lightheadedness and Denies dyspnea Resp Denies cough and Denies dyspnea GI Denies abdominal pain, Denies constipation, Denies dysphagia, Denies diarrhea, Denies nausea, Denies odynophagia and Denies vomiting Reports no additional complaints Musc Reports no additional complaints and Denies abnormal gait Skin/Breast Reports system reviewed and no additional complaints, except as documented Neuro Denies abnormal gait, Denies dizziness, Denies syncope and Denies headache(s) Psych Reports no additional complaints Physical exam (Primary Care) Vital Signs: Last Vital Signs Temp 97.1 F 09/11/24 08:18 Pulse 77 09/11/24 08:18 BP 120/66 09/11/24 08:18 Pulse Ox 94 09/11/24 08:18 Oxygen Delivery Method Room Air 09/11/24 08:18 BMI result Body Mass Index 29.0 Tobacco/Smoking Status: Tobacco use Status Tobacco use date assessed 09/11/24 09/11/24 08:22 Patient Tobacco Use Status Never used Tobacco 09/11/24 08:22 e-Cigarette/Vaping Use Never Used 09/11/24 08:22 Thrive Assessment: Date of Thrive Assessment Date Thrive assessed 06/12/24 09/11/24 08:22 Currently or been in a relationship where the following occur: I choose not to answer Const General: cooperative, healthy appearing, comfortable and no acute distress Orientation/consciousness: patient oriented x3 [facility] Head: Yes normocephalic Ears: hearing grossly normal bilaterally General nose exam: Normal external nose present Eyes General: appearance normal, both eyes and all related structures Conjunctivae: conjunctivae normal Neck Neck: Yes full ROM and Yes no lymphadenopathy Resp Effort & Inspection: normal respiratory effort Auscultation: clear to auscultation bilaterally, no crackles, no rales, no rhonchi and no wheezes Cardio Rate: regular rate Rhythm: regular rhythm Skin General skin exam: no rashes or lesions noted Neuro General: patient oriented x3 Gait exam (Neuro): Normal gait present Extrem General: Yes normal to inspection, Yes full ROM and No edema Psych Affect: normal affect Attitude: cooperative Insight: Good insight present (Psych) Judgement: Good judgement present (Psych) Coding Level of Care Code Est Pt Level 3 (63743) Diagnoses Right knee pain M25.561 Chest pain R07.9 Gastroesophageal reflux disease without esophagitis K21.9 Esophagitis presence: without esophagitis Pelvic pressure in female R10.2 Abnormal vaginal bleeding N93.9 Assessment & Plan Assessment & Plan (1) Right knee pain: Code(s): M25.561 - Pain in right knee Category: Medical Plan: Knee XR normal, patient has been working on exercises and has seen an improvement in the knee pain, continue with conservative measures as discussed at last visit. (2) Chest pain: Code(s): R07.9 - Chest pain, unspecified Category: Medical Plan: Patient complaining of nocturnal chest pain that typically resolves spontaneously after a few minutes and is reproducible. The pain can sometimes be massaged away but is consistently every night. Chest x-ray, blood work and EKG within normal limits. Concern for possibility of GERD causing symptoms. Denies any chest pain with exertion or shortness of breath with the chest pain and denies any palpitations. Likely muscular as it is reproducible and can be massaged out. (3) GERD (gastroesophageal reflux disease): Comment: With esophageal dysmotility Code(s): K21.9 - Gastro-esophageal reflux disease without esophagitis Category: Medical Qualifiers: Esophagitis presence: without esophagitis Qualified Code(s): K21.9 - Gastro-esophageal reflux disease without esophagitis Plan: Avoid trigger foods such as citrus, tomato products, soda, caffeine, spicy foods and other foods that may be irritating to your stomach. Avoid laying flat 3-4 hours after eating and elevate the head of the bed 30 degrees to prevent acid from moving into the esophagus. Not currently on medical management. GERD may be responsible for her nocturnal chest pain her pain is intermittent and resolves within 1-2 minutes and only at night. Plan to start on famotidine for management advised patient to reach out if symptoms worsen or persist. Discussed red flag symptoms and when to present for re-evaluation. (4) Pelvic pressure in female: Comment: feels pressure and possibly a mass in the vagina Code(s): R10.2 - Pelvic and perineal pain Category: Medical Plan: Patient complaining of foreign body/pressure feeling in the vagina while using the bathroom. Denies any dyspareunia or prolapse. Plan to obtain pelvic and transvaginal ultrasound for further evaluation advised to follow up with gynecology. (5) Abnormal vaginal bleeding: Code(s): N93.9 - Abnormal uterine and vaginal bleeding, unspecified Category: Medical Plan: Patient reporting intermittent bleeding over the last week. She has been without menses for about 4 months. She has an appointment later today with Gynecology advised to discuss this concern with them and consideration for possible endometrial biopsy. Plan A comprehensive evaluation and management plan includes initial investigation into postmenopausal bleeding through a pelvic ultrasound and coordination with the cloth washer back tender for further exploration. A trial of acid reflux medications is recommended for management of chest pain, with vigilant monitoring and future consultation if needed. Coordinated discussions are held regarding cardiovascular health related to maintained cholesterol levels and low vitamin D handling. Continual assessment and patient cooperation in follow-up care was emphasized. This note was constructed using voice recognition software. While every effort has been made to ensure accuracy and cat and dog bather, still areas may have been included sometimes these areas may affect the content or meeting of the given symptoms. Total time spent caring for the patient today was 20 minutes. This includes time spent before the visit reviewing the chart, time spent during the visit, and time spent after the visit and documentation. Patient was informed and verbally consented to the use of an ambient scribe for clinic note documentation during this visit. Orders: Orders US pelvic and transvaginal Today R10.2 - Pelvic and perineal pain Medications: New famotidine 20 mg PO BEDTIME 30 tabs 1RF
[2024-09-11 08:18] VITALS: BP 120/66; PULSE 77; TEMP 36.2; O2SAT 94; BMI 29.0
== END 2024-09-11 09:11 | disposition home or self-care (01) ==
LOC: HO.HMCH 08:10
PROVIDERS: PCP Internal Medicine
DX: M25.561 Pain in right knee (principal); R07.9 Chest pain, unspecified; K21.9 Gastro-esophageal reflux disease without esophagitis; R10.2 Pelvic and perineal pain; N93.9 Abnormal uterine and vaginal bleeding, unspecified

== ENCOUNTER 2024-09-11 08:10 | Outpatient (REF) | payer OTHER, SELFPAY ==
[2024-09-11 16:44] LABS: Bacterial Vaginosis PCR NEGATIVE (Negative); Candida Group PCR NOT DETECTED (Not Detect); Candida glab krusei PCR NOT DETECTED (Not Detect); Trichomonas vaginalis PCR NOT DETECTED (Not Detect)
[2024-09-11 17:17] LABS: CT PCR NOT DETECTED (Not Detect.); NG PCR NOT DETECTED (Not Detect.)
== END 2024-09-11 08:11 | disposition home or self-care (01) ==
LOC: HO.LAB 08:10
PROVIDERS: Advanced Practice Midwife; PCP Internal Medicine
DX: N89.8 Other specified noninflammatory disorders of vagina (principal)
CPT/HCPCS: 81515; 87491; 87591

== ENCOUNTER 2024-09-11 10:05 | Outpatient (AMB) | payer OTHER, SELFPAY ==
--- NOTE | 2024-09-11 10:18 | MHC.OFFVIS ---
Vital Signs 09/11/24 10:19 Height 5 ft 3 in Weight 163 lb BMI 28.9 BP 112/74 Intake Visit Reasons: ENDOSCOPY REGISTERED NURSE annual exam/DO NOT RS Intake Note: pt c/o bump on labia and irreg bleeding Television Production Clerk: Television Production Clerk Present (Marilee) Allergies zaleplon Allergy (Unknown, Verified 09/11/24 10:19) inadequate response zolpidem Allergy (Unknown, Verified 09/11/24 10:19) inadequate response Is last menstrual period known: Yes Last menstrual period: 09/10/24 HPI Comments Details: She is a postmenopausal woman presenting for her annual clinical specialist vascular examination. She is doing well with clinical specialist vascular concerns: Menses skipping 4-5 months, experienced prior hot flashes. Reports vaginal odor. Also feels pressure and ball at the opening of the vagina over the last year, admits to occasional leakage of urine. Saw her primary care this morning who ordered a pelvic ultrasound. Currently sexually active. STI testing offered; she accepts. Attempting to eat a healthy diet with calcium and vitamin D and stays active with exercise. Last pap smear; 2021 Last mammogram; 2023. Colonoscopy is UTD. Denies any family history of ovarian or colon cancer. breast cancer-M. aunt. History of uterine fibroid with ablation last year at [facility]. [facility] Medical History Vaginal irritation Encounter for annual routine gynecological examination Dysuria Vaginal discomfort Swollen eyelid Fibroid Annual physical exam Strabismus Insomnia Anxiety and depression Right renal stone Stress incontinence GERD (gastroesophageal reflux disease) Allergic rhinitis Vitamin D deficiency Breast asymmetry Surgical History History of breast mammoplasty H/O abdominoplasty Family History Mother Hypertension Father Cancer Liver cancer Maternal Aunt Breast cancer Social History Housing: Apartment Alcohol intake: former Patient Tobacco Use Status: Never used Tobacco e-Cigarette/Vaping Use: Never Used Second Hand Smoke Exposure: No service: No Current occupational status: employed Current occupation: Homecare Cognitive needs: No Hearing needs: No Vision needs: Yes Female Reproductive History Menstrual Age of Menarche: 11 Date of last menstrual period: 09/10/24 Total pregnancies: 3 Full term: 3 Number of Living Children: 3 Date of last pap smear: 03/23/22 (neg pap and hpv) Date of Mammogram: 05/12/24 (Birad 2) Review of Systems Const All systems reviewed & are unremarkable except as noted in HPI and below Reports as per HPI Eyes Reports no additional complaints ENT Reports no additional complaints Card Reports no additional complaints Resp Reports no additional complaints GI Reports as per HPI and Reports no additional complaints Reports as per HPI Musc Reports no additional complaints Skin/Breast Reports as per HPI Neuro Reports no additional complaints Psych Reports no additional complaints Endo Reports no additional complaints Bjorn/Lymph Reports no additional complaints Aller/Immun Reports no additional complaints Physical Exam Vital Signs: Last Vital Signs BP 112/74 09/11/24 10:19 BMI result Body Mass Index 28.9 Const General: cooperative, healthy appearing, no acute distress, well developed and alert Orientation/consciousness: patient oriented x3 HEENT Head: Yes normal to inspection Eyes General: appearance normal, both eyes and all related structures Neck Neck: Yes normal visual inspection Thyroid: Thyroid normal Chest Other: Bilateral surgical scarring Chest palpation & inspection: normal inspection of the chest and other (no puckering, dimpling, peau de orange, retraction, discharge, masses) Breast/axilla inspection: normal inspection of the breasts Breast/axilla palpation: normal palpation of the breasts Resp Effort & Inspection: normal respiratory effort GI Inspection: Yes normal to inspection and Yes scar Palpation (GI): Soft to palpation Rectal Exam - Female: deferred General: Yes bladder normal to palpation External Female Exam: normal external appearance and normal appearance of the urethra Speculum Exam - Vagina: normal appearance of the vagina, normal palpation, normal vaginal discharge and vaginal bleeding Speculum Exam - Cervix: normal appearance of the cervix and normal palpation Bimanual exam- vagina & uterus: normal bimanual exam, normal palpation, bladder normal to palpation, normal palpation, non-tender and enlarged Bimanual Exam- Adnexa, other: no masses OB/external & speculum: vaginal bleeding Skin General skin exam: no rashes or lesions noted Rashes: no rashes Neuro General: patient oriented x3 Cognition (Neuro): normal cognition Extrem General: Yes normal to inspection Psych Attitude: cooperative Thought process: Normal thought process present Assessment & Plan Assessment & Plan (1) Uterine myoma: Comment: 2022 Uterine Fibroid embolization Code(s): D25.9 - Leiomyoma of uterus, unspecified Category: Medical Qualifiers: Uterine leiomyoma location: unspecified location Qualified Code(s): D25.9 - Leiomyoma of uterus, unspecified Plan: Ultrasound pending follow up with PCP /for ENDOSCOPY REGISTERED NURSE prn. (2) Encounter for well woman exam with routine gynecological exam: Code(s): Z01.419 - Encounter for gynecological examination (general) (routine) without abnormal findings Category: Medical (3) Vaginal odor: Code(s): N89.8 - Other specified noninflammatory disorders of vagina Plan: BV GC chlamydia obtained today await results for plan of care. Plan Discussed: Current recommendations for pap smears per ASCCP guidelines. Breast awareness, periodic self breast exams and yearly mammogram. Maintain a healthy lifestyle, well balanced diet including Calcium 1,200 mg and Vitamin D 600 IU daily, and routine exercise. Menopause verses perimenopause. Menopause is definitive of 1 year of no menses or 12 months in succession. Report any abnormal uterine bleeding in example- heavy, prolonged episodes, or short intervals less than 24 days. Monitor menstrual cycles. Call the office for a follow up for any concerns. Follow up pending ultrasound results. Physical findings including an anterior bulge, discussed pelvic floor physical therapy-booklet given, patient will consider and let me know to place referral if she wants to pursue this further. Patient verbalizes understanding and agrees to the plan of care. She was given opportunity to ask questions and all questions were answered to the best of my ability. RTO in 1 year for annual clinical specialist vascular exam. Total time I personally spent on visit and management today: ?15 minutes. Time spent included review of pertinent office notes in the electronic health record; review of laboratory and imaging results; review of personal family medical history; performing physical exam; discussing diagnosis and plan of care with the patient; documenting the encounter in the EMR. This note is constructed using voice recognition software. While every effort has been made to ensure accuracy, mold chipper errors may have been included. Orders: Orders Bacterial Vaginosis Panel Today N89.8 - Other specified noninflammatory disorders of vagina CT NG by PCR Today N89.8 - Other specified noninflammatory disorders of vagina Coding Level of Care Code Est Pt Level 2 (07917) Est Pt Prev Care 40-64y(54417) Diagnoses Uterine leiomyoma, unspecified location D25.9 Uterine leiomyoma location: unspecified location Encounter for well woman exam with routine gynecological exam Z01.419 Vaginal odor N89.8
[2024-09-11 10:19] VITALS: BP 112/74; BMI 28.9
== END 2024-09-11 10:46 | disposition home or self-care (01) ==
LOC: HO.HWS 10:06
PROVIDERS: PCP Internal Medicine; Visit Provider Advanced Practice Midwife
DX: Z01.419 Encounter for gynecological examination (general) (routine) without abnormal findings (principal); D25.9 Leiomyoma of uterus, unspecified; N89.8 Other specified noninflammatory disorders of vagina
CPT/HCPCS: 99396; 99459

== ENCOUNTER 2024-09-11 10:43 | Outpatient (REF) | payer OTHER, SELFPAY | END 2024-09-11 10:44 | disposition home or self-care (01) | LOC: HO.LNP 10:43 | PROVIDERS: Visit Provider Advanced Practice Midwife | DX: Z13.89 Encounter for screening for other disorder (principal) ==

== ENCOUNTER 2024-10-15 16:02 | Outpatient (REF) | payer OTHER, SELFPAY ==
--- NOTE | ~2024-10-15 | US_ITS ---
EXAMINATION: US PELVIS TRANSABDOMINAL AND TRANSVAGINAL HISTORY: R10.2 - Pelvic and perineal pain COMPARISON: Comparison is made with the prior examination dated 12/23/2022. TECHNIQUE: Transabdominal and endovaginal real-time 2D chong-scale ultrasound was performed. FINDINGS: Uterus: The uterus is normal in size, measuring 8.8 x 7.2 x 7.3 cm. Myometrium has a normal echotexture. Again seen is a central fibroid measuring 4.9 x 4.6 x 4.0 cm (previously 7.5 x 6.9 x 6.4 cm)). A right fundal fibroid measures 2.8 x 1.8 x 2.4 cm (previously 3.1 x 3.4 x 3.7 cm). Endometrium: The endometrial stripe is not seen secondary to the central fibroid. Right ovary: The right ovary is not identified. Left ovary: The left ovary is not identified. Pelvic fluid: none. US/US pelvic and transvaginal IMPRESSION: Fibroid uterus as described. The endometrial stripe and ovaries are not visualized. Electronically signed by: Trace Osorio MD 10/16/2024 07:24 AM EDT
== END 2024-10-15 16:03 | disposition home or self-care (01) ==
LOC: HO.US 16:02
PROVIDERS: PCP Internal Medicine
DX: R10.2 Pelvic and perineal pain (principal)
CPT/HCPCS: 76830; 76856

== ENCOUNTER → 2024-10-15 16:05 | Outpatient (BNV) | payer OTHER, SELFPAY | PROVIDERS: PCP Internal Medicine; Visit Provider Radiology Diagnostic Radiology | DX: D25.9 Leiomyoma of uterus, unspecified (principal) | CPT/HCPCS: 76830; 76856 ==

== ENCOUNTER 2024-11-07 14:30 | Outpatient (REF) | payer OTHER, SELFPAY ==
--- NOTE | ~2024-11-07 | XR_ITS ---
CLINICAL HISTORY: K21.9 - Gastro-esophageal reflux disease without esophagitis 2 view chest x-ray Comparison: None provided Findings: No consolidation or effusion. Normal size heart. No acute fracture. IMPRESSION: 1. No acute findings. This document has been electronically signed by: Papi Mckeon MD on 11/08/2024 08:55:47
[2024-11-10 01:33] LABS: TS Negative Control Passed; TS Panel A 0; TS Panel B 0; TS Positive Control Passed; TSpotTB Negative (Negative)
== END 2024-11-07 14:31 | disposition home or self-care (01) ==
LOC: HO.LAB 14:30
PROVIDERS: PCP Internal Medicine; Visit Provider Internal Medicine
DX: K21.9 Gastro-esophageal reflux disease without esophagitis (principal)
CPT/HCPCS: 36415; 71046; 86481

== ENCOUNTER → 2024-11-07 14:43 | Outpatient (BNV) | payer OTHER, SELFPAY | PROVIDERS: PCP Internal Medicine; Visit Provider Specialist | DX: K21.9 Gastro-esophageal reflux disease without esophagitis (principal) | CPT/HCPCS: 71046 ==

== ENCOUNTER 2024-11-30 06:58 | Emergency (ER) | payer OTHER, SELFPAY ==
[2024-11-30 07:02] VITALS: BP 150/63; PULSE 72; RESP 18; TEMP 36; O2SAT 98; BMI 31.9
--- NOTE | 2024-11-30 07:18 | PC.NURSE ---
Patient reports was lifting at work on and started having middle lower back pain on sunday. Rates the pain at 10/10 with associated numbness and itching in bilateral feet. at bedside
--- NOTE | 2024-11-30 08:27 | ED_ITS ---
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 This was exacerbated few days ago after she bent over to pick something up. She is here with her partner. MD elicited complaint: back pain Related Data Previous Rx's ?Medication ?Instructions ?Recorded fluticasone furoate 27.5 2 spray intranasal DAILY 30 days 10/27/22 mcg/actuation nasal #27.3 mL spray,suspension cholecalciferol (vitamin D3) 25 25 mcg PO DAILY #90 ca ps 06/25/24 mcg (1,000 unit) capsule famotidine 20 mg tablet 20 mg PO BEDTIME #30 tabs acetaminophen 500 mg capsule 1,000 mg (2 x 500 mg) PO Q6H PRN 11/30/24 pain 5 days #20 caps lidocaine 5 % topical patch 1 patch topical DAILY 7 da ys #15 ea 11/30/24 methylprednisolone 4 mg tablets in 4 mg PO DAILY #21 e a 11/30/24 a dose pack (Medrol (Preston)) oxycodone 5 mg capsule 5 mg PO Q6H PRN pain 4 days #10 11/30/24 caps Allergies Allergy/AdvReac Type Severity Reaction Status Date / Time zaleplon Allergy Unknown inadequate Verified 11/30/24 07:05 response zolpidem Allergy Unknown inadequate Verified 11/30/24 07:05 response Review of Systems Constitutional: Constitutional: Reports as per [facility] Past Medical History Medical History Vaginal irritation Encounter for annual routine gynecological examination Dysuria Vaginal discomfort Swollen eyelid Fibroid Annual physical exam Strabismus Insomnia Anxiety and depression Right renal stone Stress incontinence GERD (gastroesophageal reflux disease) Allergic rhinitis Vitamin D deficiency Breast asymmetry Surgical History History of breast mammoplasty H/O abdominoplasty Family History Family History Mother Hypertension Father Cancer Liver cancer Maternal Aunt Breast cancer Social History Social History Housing: Apartment Alcohol intake: former Patient Tobacco Use Status: Never used Tobacco Smoked in Last 30 Days: No e-Cigarette/Vaping Use: Never Used Second Hand Smoke Exposure: No Use of substances other than those prescribed or required for medical reasons: No Advance Directives: No Advance Directives Information Provided: Yes Do you have a plan to hurt others: No Plan service: No Current occupational status: employed Current occupation: Homecare Cognitive needs: No Hearing needs: No Vision needs: Yes Physical Exam Vital Signs: Vital Signs: Last Vital Signs Temp 96.8 F 11/30/24 07:02 Pulse 72 11/30/24 07:02 Resp 18 11/30/24 07:02 BP 150/63 H 11/30/24 07:02 Pulse Ox 98 11/30/24 07:02 O2 Del Method Room Air 11/30/24 07:02 BMI result Body Mass Index 31.9 Const: Other: * Gen: ?Overall well-appearing patient * Abd: ?Bowel sounds are present, no tenderness no rebound no rigidity * MSK: Patient is able to move her knees hips ankles, distal pulses intact, generally no sensory deficits bilateral lower extremities no sensory deficits over her buttocks bilaterally, she has L4-L5 S1 tenderness paraspinal, no step-offs * Skin: Warm, dry, intact, no rashes * Neuro: ?Alert and oriented x3, moving upper and lower extremities symmetrically, no obvious facial asymmetry noted Medications Administered Discontinued Medications Generic Name Dose Route Start Last Admin Trade Name Freq PRN Reason Stop Dose Admin Acetaminophen 975 mg 11/30/24 08:29 11/30/24 08:36 Acetaminophen 325 Mg Tablet PO 11/30/24 08:30 975 mg ONCE ONE Administration Ketorolac Tromethamine 15 mg 11/30/24 08:27 11/30/24 08:37 Ketorolac Tromethamine 15 Mg/Ml Vial IM 11/30/24 08:28 15 mg ONCE ONE Administration Lidocaine 1 patch 11/30/24 08:27 11/30/24 08:37 Lidocaine 4 % Patch Adh..Patch TRANSDERMA 11/30/24 08:28 1 patch ONCE ONE Administration Protocol Morphine Sulfate 15 mg 11/30/24 08:27 11/30/24 08:36 Morphine Sulfate Immed Release 15 Mg Tablet PO 11/30/24 08:28 15 mg ONCE ONE Administration Ondansetron HCl 4 mg 11/30/24 08:27 11/30/24 08:36 Ondansetron Odt 4 Mg Tab.Rapdis TRANSLINGU 11/30/24 08:28 4 mg ONCE ONE Administration Medical Decision Making Medical Decision Making MDM Narrative: Patient is presenting with what is likely musculoskeletal pain, I screened her for red flags to suspect infectious etiology such as listed below, she has no evidence on physical examination or any other complaints to suspect spinal cord compression need due to infectious etiology or spinal stenosis or a trauma, at the time my evaluation she had significant difficulty moving secondary to pain, I spoke to her and her I think it would be reasonable to obtain an x-ray but it may just exacerbate her pain symptoms, I think and they agree may that Stewart what she needs right now is pain control and further management can be done on outpatient basis 10:30 patient re-evaluated, she feels better she was able to get up and walk to the bathroom they are comfortable with discharge Differential Diagnosis Differential Diagnoses: The differential diagnosis associated with the presentation includes Diskitis, osteomyelitis, spinal epidural abscess, cauda equina, musculoskeletal pain Tests considered The following testing was considered but not selected: CT, x-rays, blood work Prescription Management I considered prescription management with: Pain Medication Discharge Plan Discharge Clinical Impression: Low back pain Qualifiers: Chronicity: acute Back pain laterality: midline Sciatica presence: without sciatica Qualified Code(s): M54.50 - Low back pain, unspecified Patient Disposition: Home, Self-Care Instructions: Acute Low Back Pain (ED) Additional Instructions: I would like you to take 1000 mg of Tylenol every 6 hours around the clock for the next 3 days Continue with Medrol Dosepak starting tomorrow Lidocaine patches to the lower back area you can do it every 12 hours Gentle [id number] make sure you are not just lying in bed, gentle stretches encourage ambulation Ice packs heat packs to the area Oxycodone with food every 6 hours 5 mg with for breakthrough pain and to help with sleep Follow up with your primary care provider for re-evaluation, and determining whether further imaging such as x-rays, CT or MRI is indicated an outpatient basis Loss of bowel or bladder function, numbness in your groin, inability to walk come back to the ER Prescriptions: New acetaminophen 500 mg capsule 1,000 mg PO Q6H PRN (Reason: pain) 5 Days Qty: 20 0RF lidocaine 5 % adhesive patch,medicated 1 patch topical DAILY 7 Days Qty: 15 0RF Rx Instructions: leave on most painful area for up to 12 hrs oxycodone 5 mg capsule 5 mg PO Q6H PRN (Reason: pain) 4 Days Qty: 10 0RF Rx Instructions: Partial Fill upon patient request. methylprednisolone [Medrol (Preston)] 4 mg tablets,dose pack 4 mg PO DAILY Qty: 21 0RF Rx Instructions: Day 1: 24 mg on day 1 administered as 8 mg before breakfast, 4 mg after lunch, 4 mg after supper, and 8 mg at bedtime or 24 mg as a single dose or divided into 2 or 3 doses upon initiation. Day 2: 20 mg on day 2 administered as 4 mg before breakfast, 4 mg after lunch, 4 mg after supper, and 8 mg at bedtime. Day 3: 16 mg on day 3 administered as 4 mg before breakfast, 4 mg after lunch, 4 mg after supper, and 4 mg at bedtime. Day 4: 12 mg on day 4 administered as 4 mg before breakfast, 4 mg after lunch, and 4 mg at bedtime. Day 5: 8 mg on day 5 administered as 4 mg before breakfast and 4 mg at bedtime. Day 6: 4 mg on day 6 administered as 4 mg before breakfast. No Action cholecalciferol (vitamin D3) 25 mcg (1,000 unit) capsule 25 mcg PO DAILY Qty: 90 3RF fluticasone furoate 27.5 mcg/actuation spray,suspension 2 spray intranasal DAILY 30 Days Qty: 27.3 11RF Rx Instructions: into each nostril famotidine 20 mg tablet 20 mg PO BEDTIME Qty: 30 1RF Referrals: Po,Arabella Jara MD [Primary Care Provider, Internal Medicine] - 10 days Clinical Impression: Low back pain Print Language: British
[2024-11-30] MEDS: Morphine Sulfate Immed Release 15 MG TABLET PO (08:36)
[2024-11-30] MEDS: Lidocaine 4 % Patch ADH..PATCH 1 PATCH TRANSDERMA (08:37)
[2024-11-30 10:29] VITALS: BP 129/108; PULSE 62; RESP 18; TEMP 36.7; O2SAT 100
--- NOTE | 2024-11-30 10:29 | PC.NURSE ---
Tech approached this RN to report BP changes, this RN asked to repeat BP on both arms, Bp did come down, pt then reported CP to tech, this RN did let primary RN know, EKG was going to be ordered, however pt primary MD stated to not do EKG that he was just in there and is going to DC the patient as she is here for back pain and reported post medication admin she was feeling better. Primary RN aware.
[2024-11-30 10:44] VITALS: BP 129/108; PULSE 62; RESP 18; TEMP 36.7; O2SAT 100
== END 2024-11-30 10:45 | disposition home or self-care (01) ==
PROVIDERS: Emergency Provider Emergency Medicine; PCP Internal Medicine
DX: M54.50 Low back pain, unspecified (principal)
CPT/HCPCS: 96372; 99284; J1885

== ENCOUNTER 2024-12-08 15:09 | Outpatient (AMB) | payer OTHER, SELFPAY ==
--- NOTE | 2024-12-08 15:11 | A.OFFPC_ITS ---
Vital Signs 12/08/24 15:12 Height 5 ft 3 in Weight 173 lb 2 oz BMI 30.7 BP 128/90 H Blood Pressure Location Lt brachial Position Sitting Respiration 18 Pulse 81 Pulse Source Pulse Oximeter Temp 97.0 F Temp Source Temporal Artery Scan Pulse Oximetry (%) 95 Oxygen Delivery Method Room Air Intake Visit Reasons: ED Follow up [place] [facility] [place] Accompanied by: Spouse Allergies zaleplon Allergy (Unknown, Verified 12/08/24 15:16) inadequate response zolpidem Allergy (Unknown, Verified 12/08/24 15:16) inadequate response Medication List - Last Reconciled 12/08/24 by Arabella Hawkins MD acetaminophen 1,000 mg (2 x 500 mg) PO Q6H PRN 5 days cholecalciferol (vitamin D3) 25 mcg PO DAILY famotidine 20 mg PO BEDTIME fluticasone furoate 27.5 mcg/actuation 2 sprays intranasal DAILY 30 days naproxen 500 mg PO BID oxycodone 5 mg PO Q6H PRN 4 days tirzepatide (weight loss) (Zepbound) 2.5 mg (0.5 mL) subcut QWEEK Tobacco use date assessed: 12/08/24 Dental Screening Dental Screen Date: 12/08/24 Did you have a dental visit in the last 12 months?: Yes Did you have a dental problem in the last 6 months where you did not have access to dental care?: No Was dental information given to patient?: Patient has dentist [facility] Medical History Vaginal irritation Encounter for annual routine gynecological examination Dysuria Vaginal discomfort Swollen eyelid Fibroid Annual physical exam Strabismus Insomnia Anxiety and depression Right renal stone Stress incontinence GERD (gastroesophageal reflux disease) Allergic rhinitis Vitamin D deficiency Breast asymmetry Surgical History History of breast mammoplasty H/O abdominoplasty Family History Mother Hypertension Father Cancer Liver cancer Maternal Aunt Breast cancer Social History Housing: Apartment Alcohol intake: former Patient Tobacco Use Status: Never used Tobacco e-Cigarette/Vaping Use: Never Used Second Hand Smoke Exposure: No service: No Current occupational status: employed Current occupation: Homecare Cognitive needs: No Hearing needs: No Vision needs: Yes Female Reproductive History Menstrual Age of Menarche: 11 Questionnaire PHQ-9 Over the last 2 weeks, how often have you been bothered by any of the following problems? 1. Little interest or pleasure in doing things: more than half the days 2. Feeling down, depressed, or hopeless: more than half the days 3. Trouble falling or staying asleep, or sleeping too much: not at all 4. Feeling tired or having little energy: not at all 5. Poor appetite or overeating: not at all 6. Feeling bad about yourself - or that you are a failure or have let yourself or your family down: not at all 7. Trouble concentrating on things, such as reading the newspaper or watching television: not at all 8. Moving or speaking so slowly that other people could have noticed. Or the opposite - being so fidgety or restless that you have been moving around a lot more than usual: not at all 9. Thoughts that you would be better off or of hurting yourself in some way: not at all Total score: 4 Depression Screening Interpretation: Negative Depression Screening Done: Yes Source: Developed by Drs. Trace Saldivar, Merissa Glasgow, Fercho Feng and colleagues, with an educational jeffrey from [employer]. Thrive Questionnaire Date Thrive assessed: 06/12/24 I am a: Patient What is your living situation today?: I choose not to answer this question Within the past 12 months, did the food you bought not last and you didn't have the money to get more?: I choose not to answer this question Within the past 12 months, did you worry whether your food would run out before you got money to buy more?: I choose not to answer this question Do you have trouble paying for medicines?: I choose not to answer this question Do you have trouble getting transportation to medical appointments?: I choose not to answer this question Do you have trouble paying your heating and electricity bill?: I choose not to answer this question Do you have trouble taking care of your child, family member or friend?: I choose not to answer this question Do you have trouble with day-to-day activities such as bathing, preparing meals, shopping, managing finances, etc.?: I choose not to answer this question Are you currently unemployed and looking for a job?: I choose not to answer this question Are you interested in more education?: I choose not to answer this question Please select the resources that you would like help with: None Currently or been in a relationship where the following occur: I choose not to answer THRIVE Score: 0 AUDIT C Alcohol Use Questionnaire (AUDIT-C) 1. How often do you have a drink containing alcohol?: Never 3. How often do you have six or more drinks on one occasion?: Never Total Score: 0 CEZAR-7 AMB Questionnaire CEZAR-7 Date CEZAR - 7 assessed: 06/12/24 Feeling nervous, anxious, or on edge: 0 = Not at all Not being able to stop or control worryin = Not at all Worrying too much about different things: 0 = Not at all Trouble relaxin = Not at all Being so restless that it is hard to sit still: 0 = Not at all Becoming easily annoyed or irritable: 0 = Not at all Feeling afraid as if something awful might happen: 0 = Not at all Total CEZAR-7 score (0-4 normal; 5-9 mild; 10-14 moderate; 15-21 severe): 0 Source: Developed by Drs. Trace Saldivar, Merissa Glasgow, Fercho Feng and colleagues, with an educational jeffrey from [employer]. Physical exam (Primary Care) Vital Signs: Last Vital Signs Temp 97.0 F 12/08/24 15:12 Pulse 81 12/08/24 15:12 Resp 18 12/08/24 15:12 BP 128/90 H 12/08/24 15:12 Pulse Ox 95 12/08/24 15:12 Oxygen Delivery Method Room Air 12/08/24 15:12 BMI result Body Mass Index 30.7 Tobacco/Smoking Status: Tobacco use Status Tobacco use date assessed 12/08/24 12/08/24 15:18 Patient Tobacco Use Status Never used Tobacco 12/08/24 15:18 e-Cigarette/Vaping Use Never Used 12/08/24 15:18 PHQ-9: PHQ-9 Score PHQ-9: Total score 4 12/08/24 15:29 Depression Screening Interpretation: Negative Thrive Assessment: Date of Thrive Assessment Date Thrive assessed 06/12/24 12/08/24 15:18 Currently or been in a relationship where the following occur: I choose not to answer Const General: alert; No acute distress Eyes Conjunctivae: conjunctivae normal Resp Auscultation: clear to auscultation bilaterally Cardio Rate: regular rate Rhythm: regular rhythm GI Inspection: Yes normal to inspection Extrem General: Yes normal to inspection and No edema Coding Level of Care Code Est Pt Level 4 (78548) Complex EM visit Add On G2211 Diagnoses Nephrolithiasis N20.0 Low back pain M54.50 Back pain laterality: midline Chronicity: acute Sciatica presence: without sciatica Obesity (BMI 30-39.9) E66.9 Assessment & Plan Assessment & Plan (1) Nephrolithiasis: Comment: April 2023 left renal pole calculus Code(s): N20.0 - Calculus of kidney Category: Medical (2) Low back pain: Code(s): M54.50 - Low back pain, unspecified Category: Medical Qualifiers: Back pain laterality: midline Chronicity: acute Sciatica presence: without sciatica Qualified Code(s): M54.50 - Low back pain, unspecified (3) Obesity (BMI 30-39.9): Code(s): E66.9 - Obesity, unspecified Category: Medical (4) Low back pain: Code(s): M54.50 - Low back pain, unspecified Category: Medical Plan History of Present Illness The patient is a 49-year-old female presenting with an acute problem. The patient has a history of obesity and has recently gained 10 pounds. She has a history of gastroesophageal reflux disease (GERD), peripheral vascular disease, and nephrolithiasis. In November, she visited the emergency room for mid-back pain, which was treated with antibiotics, oxycodone, and steroids. She has a history of falls, which may have contributed to her back pain. A recent ultrasound showed a uterine fibroid. Blood work from May 2024 indicated normal blood count, electrolytes, renal function, and cholesterol levels. The patient is experiencing menopausal symptoms affecting her daily activities. Health Maintenance - Mammogram is up to date - Colonoscopy completed in November 2021 Social History - Reports difficulty walking due to back pain and uses a cane for mobility assistance Review of Systems - Musculoskeletal: Reports mid-back pain, difficulty walking, and history of falls - Gastrointestinal: Reports symptoms of gastroesophageal reflux disease - Genitourinary: Reports history of nephrolithiasis - Endocrine: Reports menopausal symptoms Physical Exam Results - Labs: Normal blood count, electrolytes, renal function, and cholesterol levels (May 2024) - Imaging: Ultrasound showing uterine fibroid - Imaging: Chest X-ray negative Plan The patient will be referred to physical therapy to manage her back pain and enhance mobility. An ultrasound of the kidneys will be conducted to check for nephrolithiasis. Weight loss medications, including Ozempic, were discussed as potential options given her obesity and menopausal symptoms. The patient was encouraged to maintain regular physical activity and a healthy diet to aid in weight management and overall health. Patient was informed and verbally consented to the use of an ambient scribe for clinic note documentation during this visit. Discussion Notes I discussed with the patient the management of her back pain through physical therapy and the potential use of weight loss medications like Ozempic, considering her obesity and menopausal symptoms. We also talked about the importance of regular physical activity and a healthy diet in managing her weight and overall health. An ultrasound of the kidneys was recommended to monitor for nephrolithiasis. Patient Instructions - Attend physical therapy sessions to help with back pain and mobility. - Follow up with an ultrasound of the kidneys to check for kidney stones. - Consider weight loss medications as discussed, and consult with your insurance about coverage. - Engage in regular physical activity and maintain a healthy diet to support weight management. Orders: Orders PT Evaluation and Treatment Today M54.50 - Low back pain, unspecified US renal BI Today N20.0 - Calculus of kidney Medications: New tirzepatide (weight loss) (Zepbound) for 4 weeks 2.5 mg (0.5 mL) subcut QWEEK 2 mL 3RF E66.9 - Obesity, unspecified
[2024-12-08 15:12] VITALS: BP 128/90; PULSE 81; RESP 18; TEMP 36.1; O2SAT 95; BMI 30.7
== END 2024-12-08 15:54 | disposition home or self-care (01) ==
LOC: HO.HMCH 15:11
PROVIDERS: PCP Internal Medicine; Visit Provider Internal Medicine
DX: N20.0 Calculus of kidney (principal); M54.50 Low back pain, unspecified; E66.9 Obesity, unspecified; Z68.30 Body mass index [BMI] 30.0-30.9, adult

== ENCOUNTER 2025-01-09 07:57 | Outpatient (AMB) | payer OTHER, SELFPAY ==
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
[2025-01-09 08:15] VITALS: BP 108/72; PULSE 95; TEMP 36.3; O2SAT 96; BMI 30.7
== END 2025-01-09 08:53 | disposition home or self-care (01) ==
LOC: HO.HMCH 07:58
PROVIDERS: PCP Internal Medicine; Visit Provider Internal Medicine
DX: M54.50 Low back pain, unspecified (principal); E66.9 Obesity, unspecified; D25.9 Leiomyoma of uterus, unspecified; Z68.30 Body mass index [BMI] 30.0-30.9, adult

== ENCOUNTER 2025-02-12 11:36 | Outpatient (REF) | payer OTHER, SELFPAY ==
--- NOTE | ~2025-02-12 | US_ITS ---
EXAMINATION: US RETROPERITONEAL LIMITED (RENAL ONLY) CLINICAL INFORMATION: Nephrolithiasis. COMPARISON: 05/11/2023, 10/04/2021. TECHNIQUE: Real-time imaging of the kidneys. FINDINGS: RIGHT KIDNEY: 10.6 x 3.5 x 4.3 cm (SAG x AP x TRV). The kidney is normal in size, contour, and echogenicity. Renal cortical thickness is normal. No calculi or focal parenchymal lesions. No hydronephrosis. LEFT KIDNEY: 10.4 x 4.3 x 4.6 cm (SAG x AP x TRV). The kidney is normal in size, contour, and echogenicity. Renal cortical thickness is normal. No calculi or focal parenchymal lesions. No hydronephrosis. US/US renal BI IMPRESSION: Normal renal ultrasound. No calculi identified. Electronically signed by: Ryan Fuentes MD 02/12/2025 11:59 AM EDT
== END 2025-02-12 11:37 | disposition home or self-care (01) ==
LOC: HO.US 11:36
PROVIDERS: PCP Internal Medicine; Visit Provider Internal Medicine
DX: N20.0 Calculus of kidney (principal); T22.011D Burn of unspecified degree of right forearm, subsequent encounter; T31.0 Burns involving less than 10% of body surface
CPT/HCPCS: 76775

== ENCOUNTER → 2025-02-12 11:46 | Outpatient (BNV) | payer OTHER, SELFPAY | PROVIDERS: PCP Internal Medicine; Visit Provider Radiology Diagnostic Radiology | DX: N20.0 Calculus of kidney (principal) | CPT/HCPCS: 76775 ==

== ENCOUNTER 2025-02-12 14:10 | Outpatient (AMB) | payer OTHER, SELFPAY ==
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
[2025-02-12 14:21] VITALS: BP 140/72; PULSE 72; RESP 18; TEMP 36.2; O2SAT 94; BMI 31.2
== END 2025-02-12 14:52 | disposition home or self-care (01) ==
LOC: HO.HMCH 14:10
PROVIDERS: PCP Internal Medicine; Visit Provider Internal Medicine
DX: T30.0 Burn of unspecified body region, unspecified degree (principal)

== ENCOUNTER → 2025-03-30 09:43 | Outpatient (BNVA) | payer OTHER, SELFPAY | PROVIDERS: PCP Internal Medicine; Visit Provider Surgery | DX: K21.9 Gastro-esophageal reflux disease without esophagitis (principal); I73.9 Peripheral vascular disease, unspecified; N20.0 Calculus of kidney; E66.3 Overweight; G47.00 Insomnia, unspecified; D25.9 Leiomyoma of uterus, unspecified; Z68.31 Body mass index [BMI] 31.0-31.9, adult | CPT/HCPCS: 99212 ==

== ENCOUNTER 2025-03-30 15:36 | Outpatient (AMB) | payer OTHER, SELFPAY ==
[2025-03-30 16:08] VITALS: BP 124/76; PULSE 78; O2SAT 98; BMI 31.7
--- NOTE | 2025-03-30 16:08 | MHC.PC.OV ---
Vital Signs 03/30/25 16:08 Height 5 ft 3 in Weight 179 lb BMI 31.7 BP 124/76 Blood Pressure Location Lt brachial Position Sitting Pulse 78 Pulse Source Pulse Oximeter Pulse Oximetry (%) 98 Oxygen Delivery Method Room Air Intake Visit Reasons: Low back pain, nephrolithiasis, obesity Allergies zaleplon Allergy (Unknown, Verified 03/30/25 16:08) inadequate response zolpidem Allergy (Unknown, Verified 03/30/25 16:08) inadequate response Medication List - Last Reconciled 03/30/25 by Arabella Hawkins MD acetaminophen 1,000 mg (2 x 500 mg) PO Q6H PRN 5 days [CANE As directed] cholecalciferol (vitamin D3) 25 mcg PO DAILY doxylamine succinate 25 mg PO BEDTIME PRN fluticasone furoate 27.5 mcg/actuation 2 sprays intranasal DAILY 30 days tirzepatide (weight loss) (Zepbound) 2.5 mg (0.5 mL) subcut QWEEK Tobacco use date assessed: 02/12/25 Dental Screening Dental Screen Date: 02/12/25 [facility] Medical History Vaginal irritation Encounter for annual routine gynecological examination Dysuria Vaginal discomfort Swollen eyelid Fibroid Annual physical exam Strabismus Insomnia Anxiety and depression Right renal stone Stress incontinence GERD (gastroesophageal reflux disease) Allergic rhinitis Vitamin D deficiency Breast asymmetry Surgical History History of breast mammoplasty H/O abdominoplasty Family History Mother Hypertension Father Cancer Liver cancer Maternal Aunt Breast cancer Social History Housing: Apartment Alcohol intake: former Patient Tobacco Use Status: Never used Tobacco Tobacco use type: Cigarette e-Cigarette/Vaping Use: Never Used Second Hand Smoke Exposure: No service: No Current occupational status: employed Current occupation: Homecare Cognitive needs: No Hearing needs: No Vision needs: Yes Female Reproductive History Menstrual Age of Menarche: 11 Questionnaire Thrive Questionnaire Date Thrive assessed: 06/12/24 I am a: Patient What is your living situation today?: I choose not to answer this question Within the past 12 months, did the food you bought not last and you didn't have the money to get more?: I choose not to answer this question Within the past 12 months, did you worry whether your food would run out before you got money to buy more?: I choose not to answer this question Do you have trouble paying for medicines?: I choose not to answer this question Do you have trouble getting transportation to medical appointments?: I choose not to answer this question Do you have trouble paying your heating and electricity bill?: I choose not to answer this question Do you have trouble taking care of your child, family member or friend?: I choose not to answer this question Do you have trouble with day-to-day activities such as bathing, preparing meals, shopping, managing finances, etc.?: I choose not to answer this question Are you currently unemployed and looking for a job?: I choose not to answer this question Are you interested in more education?: I choose not to answer this question Please select the resources that you would like help with: None Currently or been in a relationship where the following occur: I choose not to answer THRIVE Score: 0 CEZAR-7 AMB Questionnaire CEZAR-7 Date CEZAR - 7 assessed: 06/12/24 Source: Developed by Drs. Trace Saldivar, Merissa Glasgow, Fercho Feng and colleagues, with an educational jeffrey from [employer]. Physical exam (Primary Care) Vital Signs: Last Vital Signs Pulse 78 03/30/25 16:08 BP 124/76 03/30/25 16:08 Pulse Ox 98 03/30/25 16:08 Oxygen Delivery Method Room Air 03/30/25 16:08 BMI result Body Mass Index 31.7 Tobacco/Smoking Status: Tobacco use Status Tobacco use date assessed 02/12/25 03/30/25 16:13 Patient Tobacco Use Status Never used Tobacco 03/30/25 16:13 Tobacco use type Cigarette 03/30/25 16:13 e-Cigarette/Vaping Use Never Used 03/30/25 16:13 Thrive Assessment: Date of Thrive Assessment Date Thrive assessed 06/12/24 03/30/25 16:13 Currently or been in a relationship where the following occur: I choose not to answer Const General: alert; No acute distress Eyes Conjunctivae: conjunctivae normal Resp Auscultation: clear to auscultation bilaterally Cardio Rate: regular rate Rhythm: regular rhythm GI Inspection: Yes normal to inspection Extrem General: Yes normal to inspection and No edema Coding Level of Care Code Est Pt Level 4 (71768) Complex EM visit Add On G2211 Diagnoses Obesity (BMI 30-39.9) E66.9 Gastroesophageal reflux disease without esophagitis K21.9 Esophagitis presence: without esophagitis Peripheral vascular disease I73.9 Left renal stone N20.0 Overweight (BMI 25.0-29.9) E66.3 Insomnia G47.00 Uterine leiomyoma, unspecified location D25.9 Uterine leiomyoma location: unspecified location Assessment & Plan Assessment & Plan (1) Obesity (BMI 30-39.9): Code(s): E66.9 - Obesity, unspecified Category: Medical Plan: Diet and exercise patient was prescribed tirzepatide (2) GERD (gastroesophageal reflux disease): Comment: With esophageal dysmotility Code(s): K21.9 - Gastro-esophageal reflux disease without esophagitis Category: Medical Qualifiers: Esophagitis presence: without esophagitis Qualified Code(s): K21.9 - Gastro-esophageal reflux disease without esophagitis Plan: Avoid the foods that causes that usually spicy foods, tomato products, juices, coffee, soda and foods that your sensitive to. After eating do not lie down, allow 3-4 hours before in lie down. And keep the head of bed above 30 degrees to avoid the acid from going up. (3) Peripheral vascular disease: Code(s): I73.9 - Peripheral vascular disease, unspecified Category: Medical Plan: When sitting down elevate the legs, exercise, and support stockings (4) Left renal stone: Comment: September 2021, repeat ultrasound negative Code(s): N20.0 - Calculus of kidney Category: Medical Plan: Repeat ultrasound is negative (5) Overweight (BMI 25.0-29.9): Code(s): E66.3 - Overweight Category: Medical (6) Insomnia: Code(s): G47.00 - Insomnia, unspecified Category: Medical (7) Uterine myoma: Comment: 2022 Uterine Fibroid embolization, 09/2027 smaller Code(s): D25.9 - Leiomyoma of uterus, unspecified Category: Medical Qualifiers: Uterine leiomyoma location: unspecified location Qualified Code(s): D25.9 - Leiomyoma of uterus, unspecified Plan History of Present Illness The patient is a 50-year-old obese female presenting for a follow-up visit with a history of gastroesophageal reflux disease (GERD), left nephrolithiasis, and peripheral vascular disease. Her last visit was on January 09, 2025. In January, the patient was seen for a burn on her right forearm, which was treated with Augmentin. An ultrasound performed on February 12 showed no renal calculi. Regarding health maintenance, her last colonoscopy was in 2021 and her next mammogram is due in April. Blood work from June 12, 2024, revealed a normal blood count, electrolytes, renal function, blood sugar, liver function, and good cholesterol, but low vitamin D. Her T-spot test was negative. The patient has been prescribed tirzepatide for diet and exercise support. She has a history of uterine fibroids and underwent an embolization in January 2023. She also has a history of lumbar degenerative disc disease with three bad discs, confirmed by an MRI on December 07. The patient reports issues with sleeping and previously took sleeping pills a long time ago. Health Maintenance The Shingrix vaccine for shingles prevention was recommended. A refill for a steroid cream was provided with instructions not to use it for fungal infections. The patient was counseled on adherence to a healthy diet, regular exercise, and adequate water intake for overall health and weight management. Social History - Diet: Patient was advised to eat a healthy diet rich in vegetables, fish, and chicken, while avoiding fried foods. - She states her lunch often consists of salad items like leaves, cucumber, and tomato. - Exercise: The patient reports she does not walk much and was encouraged to increase her physical activity. Review of Systems - Constitutional: Reports sweating. - Dermatologic: Reports having annoying skin tags. - Musculoskeletal: Reports a history of - Psychiatric: Reports difficulty sleeping. Physical Exam - Vitals: Blood pressure is 124/76 mmHg. - Integumentary: A skin tag is noted and described as not large but annoying to the patient. Results - Labs (June 12, 2024): Normal blood count, electrolytes, renal function, blood sugar, and liver function. - Cholesterol was good. - Vitamin D was low. - T-spot was negative. - Renal Ultrasound (February 12): Showed no calculi. - MRI Lumbar Spine (December 07, per patient report): Showed three bad discs/bulging disc. Plan Patient was informed and verbally consented to the use of an ambient scribe for clinic note documentation during this visit. 1. Obesity The patient was previously prescribed tirzepatide. Due to insurance requirements, a three-month trial of phentermine (Adipex) is necessary. The risks of phentermine, including its effects on the heart and blood pressure as it is an upper, were discussed. A prescription for phentermine was sent to [facility]. A follow-up visit is scheduled in one month to monitor its effects. 2. Diabetes Mellitus Screening The patient needs to be screened for diabetes, as recommended by a weight management clinic and due to symptoms of sweating. Fasting blood work has been ordered to check blood sugar and hemoglobin A1c. 3. Insomnia The patient reports difficulty sleeping. Options for sleep aids were discussed, including Ambien, trazodone, and doxylamine. A prescription for a sleep medication will be provided. 4. Lumbar Degenerative Disc Disease The patient requires a cane due to lumbar degenerative disc disease, but her previous prescription was not accepted. A new prescription will be printed with the specific diagnosis. An attempt will be made to obtain the CT scan report from [facility]. 5. Uterine Fibroids The patient has a history of uterine fibroids, status post embolization in January 2023. For follow-up, a pelvic ultrasound will be ordered before considering an MRI. 6. Skin Tags The patient is bothered by skin tags. A referral will be placed to dermatology for removal. Discussion Notes I discussed the plan for weight management with the patient, explaining that her insurance requires a three-month trial of phentermine before they will approve other medications. I expressed my reservations about this medication, noting that it is an upper that can affect heart and blood pressure, but the patient agreed to the trial. We will follow up in one month to monitor her response to the phentermine. I ordered fasting blood work to screen for diabetes and to check her cholesterol, vitamin D, and thyroid function, instructing her that she can only have water beforehand. I reviewed several options for her insomnia, including Ambien, trazodone, and doxylamine. I will send a referral to dermatology for her skin tags. I provided the patient with a new, more specific prescription for a cane to address her lumbar degenerative disc disease and will attempt to retrieve her CT scan records. I also ordered a follow-up pelvic ultrasound to monitor her uterine fibroids. I recommended the Shingrix vaccine for shingles prevention, informing her it is a two-part shot available at the pharmacy and sharing my personal experience with the side effects. We had an extensive discussion about the importance of lifestyle changes, including eating a healthy diet, drinking more water, and increasing physical activity, emphasizing that these are crucial for long-term health and weight loss success. A refill for a steroid cream was sent to her updated pharmacy, [facility], with clear instructions not to use it on fungal infections. Patient Instructions - Please go to the lab for fasting blood work to check your sugar, cholesterol, and vitamin D levels. - Do not eat or drink anything except water before your test. - A prescription for a diet pill called phentermine has been sent to [facility] pharmacy. - You will need to schedule a follow-up appointment in one month to discuss this medication. - A prescription for sleep has been sent to your pharmacy. - We will send a referral for you to see a skin care consultant (credit operations specialist) to have your skin tags removed. - We have placed an order for a follow-up ultrasound to check on your fibroids. - You have been given a new prescription for a cane; please take it to the medical supply store. - Consider getting the shingles vaccine (Shingrix) at your pharmacy. - It is a two-shot series. - Your next mammogram is due in April. - A refill for your steroid cream has been sent to your pharmacy. - Do not use this cream on any fungal infections. - Remember to eat a healthy diet with more vegetables, drink plenty of water, and increase your daily walking. Orders: Orders Free T4 (Free Thyroxine) Today E66.9 - Obesity, unspecified Hemoglobin A1c Today E66.9 - Obesity, unspecified Lipid Panel Today E66.9 - Obesity, unspecified, E78.00 - Pure hypercholesterolemia, unspecified Vitamin B12 and Folate Today E66.9 - Obesity, unspecified Complete Blood Count Auto Diff Today E66.9 - Obesity, unspecified Comprehensive Met. Panel Today E66.9 - Obesity, unspecified Thyroid Stimulating Hormone Today E66.9 - Obesity, unspecified Vitamin D 25-OH Total Today E66.9 - Obesity, unspecified US pelvic and transvaginal Today D25.9 - Leiomyoma of uterus, unspecified Referrals Dermatology Referral L91.8 - Other hypertrophic disorders of the skin Medications: New doxylamine succinate 25 mg PO BEDTIME PRN 30 tabs 0RF sleep G47.00 - Insomnia, unspecified clotrimazole 1% 1 appl topical BID 45 grams 0RF 4 weeks E66.9 - Obesity, unspecified phentermine must administer 30 minutes before or 1-2 hours after breakfast 37.5 mg PO DAILY 30 caps 0RF E66.9 - Obesity, unspecified phentermine must administer 30 minutes before or 1-2 hours after breakfast 37.5 mg PO DAILY 30 caps 0RF E66.9 - Obesity, unspecified Refilled [CANE] As directed 1 ea 0RF M51.369 - Other intervertebral disc degeneration, lumbar region without mention of lumbar back pain or lower extremity pain, M54.50 - Low back pain, unspecified Discontinued tirzepatide (weight loss) (Zepbound) for 4 weeks Discontinued Reason: Insurance Denied 2.5 mg (0.5 mL) subcut QWEEK 2 mL 3RF E66.9 - Obesity, unspecified
== END 2025-03-30 16:55 | disposition home or self-care (01) ==
LOC: HO.HMCH 15:37
PROVIDERS: PCP Internal Medicine; Visit Provider Internal Medicine
DX: K21.9 Gastro-esophageal reflux disease without esophagitis (principal); E66.9 Obesity, unspecified; Z68.31 Body mass index [BMI] 31.0-31.9, adult; I73.9 Peripheral vascular disease, unspecified; N20.0 Calculus of kidney; G47.00 Insomnia, unspecified; D25.9 Leiomyoma of uterus, unspecified

== ENCOUNTER 2025-04-01 06:01 | Outpatient (REF) | payer OTHER, SELFPAY ==
[2025-04-01 06:15] LABS: MANUAL DIFF FLAG NO
[2025-04-01 07:16] LABS: Hematocrit 40.7 % (37.0-47.0); Hemoglobin 13.7 g/dl (12.0-16.0); Imm Gran Abs Auto 0.02 X10*3/uL (0.00-0.03); Imm Gran Pct Auto 0.3 % (0.0-0.4); Lymphocytes Absolute Auto 2.1 X10*3/uL (1.2-4.9); Mean Corpuscular HGB Conc 33.7 g/dl (31.0-35.0); Mean Corpuscular Hemoglobin 31.2 pg (27.0-33.0); Mean Corpuscular Volume 92.7 fL (80.0-98.0); NRBC Abs Auto 0.000 X10*3/uL (0.0-0.012); NRBC Pct Auto 0.0 /100WBC (0.0-0.2); Platelet Count 336 X10*3/uL (160-400); Red Blood Count 4.39 X10*6/uL (4.20-5.50); White Blood Count 6.1 X10*3/uL (4.8-10.8)
[2025-04-01 07:40] LABS: Alanine Aminotransferase 22 U/L (0-31); Albumin Level 4.5 g/dL (3.5-5.0); Alkaline Phosphatase 81 U/L (39-117); Anion Gap 12 (12-20); Aspartate Amino Transferase 23 U/L (5-31); Blood Urea Nitrogen 14 mg/dL (9-16); Calcium 10.0 mg/dL (8.4-10.2); Carbon Dioxide 26 mmol/L (22-29); Chloride 106 mmol/L (96-108); Cholesterol 179 mg/dL (<200); Estimated Glomerular Filt Rate > 60; HDL Cholesterol 51 mg/dL (>40); Potassium 3.8 mmol/L (3.3-5.1); Sodium 140 mmol/L (135-145); Total Protein 7.6 g/dL (6.5-8.0); Triglycerides 99 mg/dL (<150)
[2025-04-01 07:56] LABS: Free T4 (Free Thyroxine) 1.05 ng/dL (0.71-1.85); Thyroid Stimulating Hormone 1.87 uIU/mL (0.32-4.0)
[2025-04-01 08:08] LABS: Folate 13.4 ng/mL (> or = 4.0); Vitamin B12 542 pg/mL (200-900)
== END 2025-04-01 06:02 | disposition home or self-care (01) ==
LOC: HO.LAB 06:01
PROVIDERS: PCP Internal Medicine; Visit Provider Internal Medicine
DX: E78.00 Pure hypercholesterolemia, unspecified (principal); E66.9 Obesity, unspecified
CPT/HCPCS: 36415; 80053; 80061; 82306; 82607; 82746; 83036; 84439; 84443; 85025

== ENCOUNTER 2025-05-09 17:25 | Emergency (ER) | payer OTHER, SELFPAY ==
--- NOTE | 2025-05-09 | ECG_ITS ---
Test Reason : CP Blood Pressure : */* mmHG Vent. Rate : 103 BPM Atrial Rate : 103 BPM P-R Int : 116 ms QRS Dur : 76 ms QT Int : 328 ms P-R-T Axes : 57 56 65 degrees QTcB Int : 429 ms Sinus tachycardia Otherwise normal ECG When compared with ECG of 12-Jun-2024 09:30, Vent. rate has increased by 42 bpm Referred By: Generic ED Physician Electronically Signed By: Marcos Serra
--- NOTE | ~2025-05-09 | CT_ITS ---
CLINICAL HISTORY: Dizziness; Chest Pain; Hemoptysis; ? PE CT Angiography Chest with contrast. 3-D postprocessing Comparison: CR - XR CHEST 2V - 05/09/25 18:09 EST Findings: No suspicious thyroid nodules. No lymphadenopathy. Mediastinum and Heart: No cardiomegaly. Pulmonary arteries: No pulmonary embolism to the level of the lobar arteries. The main pulmonary artery is normal in size. Lungs: Bibasilar atelectasis. No consolidation, pleural effusion, or pneumothorax. 4 mm nodule in the left lower lobe (series 7, image 81). Upper abdomen: Tiny hiatal hernia. Bones and soft tissues: Multilevel degenerative changes. No acute fracture. Impression: No pulmonary embolism to the level of the lobar pulmonary arteries. 4mm left lower lobe nodule. Recommend follow up CT chest in 12 months. This document has been electronically signed by: Maribeth Browne MD on 05/09/2025 22:54:07
--- NOTE | ~2025-05-09 | XR_ITS ---
CLINICAL HISTORY: chest pain Two views of the chest. COMPARISON: XR chest dated 11/07/24 at 14:56 EDT FINDINGS: Normal heart and mediastinal contours. No consolidation. No pleural effusion or pneumothorax. No acute fracture. IMPRESSION: 1. No consolidation. This document has been electronically signed by: Donald Cordoba MD on 05/09/2025 18:40:03
--- NOTE | ~2025-05-09 | CT_ITS ---
CLINICAL HISTORY: Dizziness CT Head without contrast Comparison: None provided Findings: No large vessel territory infarct. No acute intracranial hemorrhage. No mass effect, midline shift, or herniation. The pituitary gland and sella are unremarkable. The cerebellar tonsils are appropriately positioned. Orbits: Unremarkable. Paranasal sinuses: Well aerated. The mastoid air cells are well aerated. The soft tissues are unremarkable. No acute displaced calvarial fracture. Impression: No acute intracranial abnormality. This document has been electronically signed by: Maribeth Browne MD on 05/09/2025 22:49:48
[2025-05-09 17:55] VITALS: BP 153/80; PULSE 82; RESP 16; TEMP 36.3; O2SAT 97; BMI 29.5
--- NOTE | 2025-05-09 17:56 | ED_ITS ---
HPI - Chest Pain General Chief Complaint: Chest Pain Stated Complaint: Chest pain Time Seen by Provider: 05/09/25 21:21 Source: patient Mode of arrival: ambulatory Limitations: no limitations History of Present Illness ED Provider: Ryan LOBATO HPI narrative: The patient is a 50-year-old female who presents for evaluation of chest pain and dizziness that have been present for ?a couple of weeks.? Onset is unclear but symptoms occur almost daily. Chest pain is located in the anterior left sternal border; pain increases with deep inspiration and with palpation/pushing on the affected area, and is less severe with pulling with the upper extremities. She reports poor sleep with frequent nocturnal awakenings due to pain and/or shortness of breath. Associated symptoms include intermittent dizziness, night sweats significant enough to dampen the bed, and two episodes of hemoptysis in the past month. Patient denies any unintentional weight loss. She denies fever, vomiting, abdominal pain, recent trauma, recent air travel, or prolonged car rides. She notes occasional bilateral lower leg discomfort but no persistent calf pain. Related Data Previous Rx's ?Medication ?Instructions ?Recorded fluticasone furoate 27.5 2 spray intranasal DAILY 30 days 10/27/22 mcg/actuation nasal #27.3 mL spray,suspension cholecalciferol (vitamin D3) 25 25 mcg PO DAILY #90 ca ps 06/25/24 mcg (1,000 unit) capsule acetaminophen 500 mg capsule 1,000 mg (2 x 500 mg) PO Q6H PRN 11/30/24 pain 5 days #20 caps CANE #1 ea 03/30/25 clotrimazole 1 % topical cream 1 appl topical BID 4 we eks #45 03/30/25 grams phentermine 37.5 mg capsule 37.5 mg PO DAILY #30 caps 03/30/25 doxylamine succinate 25 mg tablet 25 mg PO BEDTIME PRN sleep #30 tabs 03/31/25 Allergies Allergy/AdvReac Type Severity Reaction Status Date / Time zaleplon Allergy Unknown inadequate Verified 05/09/25 17:57 response zolpidem Allergy Unknown inadequate Verified 05/09/25 17:57 response Review of Systems 2 Review of Systems: Yes all other systems are reviewed and are negative PMFSH Past Medical History Medical History (Updated 05/09/25 @ 23:04 by Ryan Mello PA-C) Overweight (BMI 25.0-29.9) Vaginal irritation Encounter for annual routine gynecological examination Dysuria Vaginal discomfort Swollen eyelid Fibroid Annual physical exam Strabismus Insomnia Anxiety and depression Right renal stone Stress incontinence GERD (gastroesophageal reflux disease) Allergic rhinitis Vitamin D deficiency Breast asymmetry Surgical History History of breast mammoplasty H/O abdominoplasty Family History Family History Mother Hypertension Father Cancer Liver cancer Maternal Aunt Breast cancer Social History Social History Housing: Apartment Alcohol intake: former Patient Tobacco Use Status: Never used Tobacco Tobacco use type: Cigarette e-Cigarette/Vaping Use: Never Used Second Hand Smoke Exposure: No Advance Directives: No Advance Directives Information Provided: No Do you have a plan to hurt others: No Plan service: No Current occupational status: employed Current occupation: Homecare Cognitive needs: No Hearing needs: No Vision needs: Yes Physical Exam 2 Vital Signs: Vital Signs: Last Vital Signs Temp 98.1 F 05/09/25 22:11 Pulse 67 05/09/25 22:11 Resp 18 05/09/25 22:11 BP 153/70 H 05/09/25 22:11 Pulse Ox 99 05/09/25 22:11 O2 Del Method Room Air 05/09/25 22:11 BMI result Body Mass Index 29.5 CONSTITUTIONAL: The patient appears non-toxic, well nourished and in no acute distress. Vital signs as documented. HEAD: Atraumatic, normocephalic. EYES: EOMs grossly intact, pupils equal, conjunctiva clear, no exudate. ENT: Nares patent, no discharge. Airway patent, no audible stridor, visible mucosa is pink and moist without noted lesions. NECK: Trachea is midline, no obvious masses or gross abnormalities. CHEST: Symmetric movement, normal appearance. Pain is partially reproduced with palpation of the left sternal border. LUNGS: LS present and CTAB, no w/r/r. Non-labored work of breathing. CARDIAC: Regular Rhythm, S1/S2 appreciated, no murmurs, rubs or gallops. ABDOMEN: Abdomen soft and non-tender x4 quadrants, no palpable masses or organomegaly. : Deferred. EXTREMITIES: Normal tone, moves all extremities spontaneously without reported pain. No obvious acute injury or deformity noted. No swelling or calf tenderness. NEURO: Alert and oriented x3, CN II-XII appear grossly intact. Cerebellar Functioning grossly intact. No obvious sensory or motor deficits. Speech clear and appropriate. PSYCH: normal affect, appropriate eye contact, fluid speech, with appropriate response to questioning. No reported suicidality or homicidality. SKIN: Warm, dry, color appropriate, normal turgor. No rashes noted. Course Course Course Narrative: Mini Castelan [employer] 05/09 1756 This is a rapid medical exam. Deferred additional HPI, ROS, PE to primary provider. 50 yo female here with chest pain, dizziness, shortness of breath x several weeks. Started on phentermine for weight loss prior to these symptoms starting. Will need labs, EKG, CXR VSS Medications Administered Discontinued Medications Generic Name Dose Route Start Last Admin Trade Name Freq PRN Reason Stop Dose Admin Iohexol 100 ml 05/09/25 22:11 05/09/25 22:12 Iohexol 350 Mg/Ml 100 Ml Infus..Btl IV 05/09/25 22:12 65 ml ONCE ONE Administration Medical Decision Making Medical Decision Making [facility] Narrative: 9:42 PM 05/09/2025 ([place] LOBATO): The patient is a 50-year-old female who presents for evaluation of chest pain and dizziness that have been present for ?a couple of weeks.? Onset is unclear but symptoms occur almost daily. Chest pain is located in the anterior left sternal border; pain increases with deep inspiration and with palpation/pushing on the affected area, and is less severe with pulling with the upper extremities. She reports poor sleep with frequent nocturnal awakenings due to pain and/or shortness of breath. Associated symptoms include intermittent dizziness, night sweats significant enough to dampen the bed, and two episodes of hemoptysis in the past month. Patient denies any unintentional weight loss. She denies fever, vomiting, abdominal pain, recent trauma, recent air travel, or prolonged car rides. She notes occasional bilateral lower leg discomfort but no persistent calf pain. On exam the patient is well-appearing, in no acute distress, pain is partially reproduced with palpation of the left sternal border, lung sounds clear to auscultation throughout, abdominal exam is nontender. No calf tenderness or swelling. Laboratory evaluation shows no leukocytosis, anemia, electrolyte abnormality, or significant SEGUNDO. LFTs are unremarkable. Troponin is negative. EKG shows sinus tachycardia but is nonischemic. Due to the combination of chest pain, tachycardia on EKG, and hemoptysis, we will obtain CT angiography of the chest to rule out pulmonary embolism or other acute intrathoracic pathology. Patient is muscle ache suffering from musculoskeletal chest wall pain/costochondritis. Pending unremarkable CT we will provide trial of anti-inflammatories and a topical analgesic patch. 10:59 PM 05/09/2025 ([place] LOBATO): Patient's CT head and CTA chest showed no acute intracranial or intrathoracic pathology, no PE. There is a 4 mm pulmonary nodule noted in the left lower lobe, recommendation for 12 month follow up. Patient's symptoms are likely secondary to a musculoskeletal strain of the chest wall versus costochondritis, patient will be treated with ibuprofen, Tylenol, lidocaine patch, and discharged with supportive care. Admission/Observation Consideration of admission/observation: Escalation of care including admission/observation considered Lab Data MDM Lab Attestation statement: I reviewed the patient's lab results. 05/09/25 18:41 05/09/25 18:41 Labs: Lab Results 05/09/25 Range/Units 18:41 WBC 7.6 (4.8-10.8) X10*3/uL RBC 4.51 (4.20-5.50) X10*6/uL Hgb 14.1 (12.0-16.0) g/dl Hct 41.7 (37.0-47.0) % MCV 92.5 (80.0-98.0) fL MCH 31.3 (27.0-33.0) pg MCHC 33.8 (31.0-35.0) g/dl RDW 13.1 (11.0-16.0) % Plt Count 353 (160-400) X10*3/uL MPV 10.0 (9.4-12.3) fL Immature Gran % (Auto) 0.3 (0.0-0.4) % Neut % (Auto) 58.1 (45-73) % Lymph % (Auto) 32.2 (20-40) % George % (Auto) 7.0 (2-11) % Eos % (Auto) 1.7 (0-4) % Baso % (Auto) 0.7 (0-2) % Lymph # (Auto) 2.4 (1.2-4.9) X10*3/uL George # (Auto) 0.5 (0.1-1.2) X10*3/uL Eos # (Auto) 0.1 (0.0-0.4) X10*3/uL Baso # (Auto) 0.1 (0.0-0.2) X10*3/uL Abs Immat Gran (auto) 0.02 (0.00-0.03) X10*3/uL Absolute Neuts (auto) 4.4 (2.0-8.3) x10*3/uL Absolute Nucleated RBC 0.000 (0.0-0.012) X10*3/uL Nucleated RBC % (auto) 0.0 (0.0-0.2) /100WBC Sodium 143 (135-145) mmol/L Potassium 4.4 (3.3-5.1) mmol/L Chloride 107 (96-108) mmol/L Carbon Dioxide 27 (22-29) mmol/L Anion Gap 13 (12-20) BUN 20 H (9-16) mg/dL Creatinine 0.86 (0.5-1.4) mg/dL Estim Creat Clear Calc 75.3 Estimated GFR > 60 Random Glucose 101 (60-115) mg/dL Calcium 10.4 H (8.4-10.2) mg/dL Total Bilirubin 0.4 (0.0-1.0) mg/dL Direct Bilirubin 0.1 (0.0-0.5) mg/dL AST 20 (5-31) U/L ALT 24 (0-31) U/L Alkaline Phosphatase 72 (39-117) U/L Troponin I High Sens < 2.7 (<3.5-17.0) ng/L Total Protein 7.9 (6.5-8.0) g/dL Albumin 4.8 (3.5-5.0) g/dL Independent Interpretation I performed an independent interpretation of an: EKG (EKG shows sinus tachycardia with a rate of 103, no evidence of acute ischemia, no ST elevation, no ectopy. QTC 429, compared to previous on 06/12/2024 there are no significant morphology changes.) Radiology Impression Discussion of test interpretation with radiology: I have reviewed the radiologist's reading. Radiologist Impression: Two views of the chest. COMPARISON: XR chest dated 11/07/24 at 14:56 EDT FINDINGS: Normal heart and mediastinal contours. No consolidation. No pleural effusion or pneumothorax. No acute fracture. IMPRESSION: 1. No consolidation. This document has been electronically signed by: Donald Cordoba MD on 05/09/2025 18:40:03 CT Angiography Chest with contrast. 3-D postprocessing Comparison: CR - XR CHEST 2V - 05/09/25 18:09 EST Findings: No suspicious thyroid nodules. No lymphadenopathy. Mediastinum and Heart: No cardiomegaly. Pulmonary arteries: No pulmonary embolism to the level of the lobar arteries. The main pulmonary artery is normal in size. Lungs: Bibasilar atelectasis. No consolidation, pleural effusion, or pneumothorax. 4 mm nodule in the left lower lobe (series 7, image 81). Upper abdomen: Tiny hiatal hernia. Bones and soft tissues: Multilevel degenerative changes. No acute fracture. Impression: No pulmonary embolism to the level of the lobar pulmonary arteries. 4mm left lower lobe nodule. Recommend follow up CT chest in 12 months. This document has been electronically signed by: Maribeth Browne MD on 05/09/2025 22:54:07 CT Head without contrast Comparison: None provided Findings: No large vessel territory infarct. No acute intracranial hemorrhage. No mass effect, midline shift, or herniation. The pituitary gland and sella are unremarkable. The cerebellar tonsils are appropriately positioned. Orbits: Unremarkable. Paranasal sinuses: Well aerated. The mastoid air cells are well aerated. The soft tissues are unremarkable. No acute displaced calvarial fracture. Impression: No acute intracranial abnormality. This document has been electronically signed by: Maribeth Browne MD on 05/09/2025 22:49:48 Discharge Plan Discharge Clinical Impression: Chest wall pain Patient Disposition: Home, Self-Care Instructions: Costochondritis (ED), Chest Wall Pain (ED) Additional Instructions: Thank you for choosing [facility] Emergency Department for your care today. Thankfully your laboratory evaluation, CT imaging, chest x-ray, EKG, cardiac enzymes, exam, and vital signs today are all reassuring. At this time there is no indication for admission to the hospital or continued ED observation, and it is safe to discharge you home. Your workup shows no evidence of a systemic infection, anemia, electrolyte abnormality, kidney dysfunction, liver dysfunction, or any acute cardiac, coagulopathic (blood clot), pulmonary, or other dangerous cause for your symptoms. Your symptoms may be related to inflammation of your chest wall at the intersection of your ribs and sternum, this is a condition known as costochondritis. You should take alternating (staggered) doses of ibuprofen 600mg and Tylenol 1000mg every 4 hours as needed for any additional pain. You may also apply ice to the area to relieve discomfort. We have treated you with a lidocaine patch, if you find this provides you significant relief additional patches can be purchased at any local pharmacy without a prescription. Your CT does show an incidental 4 mm pulmonary nodule in the left lower lung base, this is likely not contributing to your symptoms, and does not require any urgent intervention. It is recommended that your follow up with the your primary care provider for a repeat CT of your chest in 12 months to ensure there are no changes in this finding. Please follow up with your primary care physician for re-evaluation, additional management of your symptoms, and continued preventative care. If you do not have a primary care physician, please call the [facility] at [phone] to establish a new primary care physician. While waiting to establish your new primary care physician, you can call our [facility] at [phone] for non-emergency needs. Please return to the emergency department if you develop a severe or sudden change in your symptoms, a fever over 100.4 that does not improve with Tylenol or Ibuprofen, recurrent vomiting, or any other new or worsening symptoms or concerns. Prescriptions: No Action cholecalciferol (vitamin D3) 25 mcg (1,000 unit) capsule 25 mcg PO DAILY Qty: 90 3RF doxylamine succinate 25 mg tablet 25 mg PO BEDTIME PRN (Reason: sleep) Qty: 30 0RF acetaminophen 500 mg capsule 1,000 mg PO Q6H PRN (Reason: pain) 5 Days Qty: 20 0RF fluticasone furoate 27.5 mcg/actuation spray,suspension 2 spray intranasal DAILY 30 Days Qty: 27.3 11RF Rx Instructions: into each nostril phentermine 37.5 mg capsule 37.5 mg PO DAILY Qty: 30 0RF Rx Instructions: must administer 30 minutes before or 1-2 hours after breakfast clotrimazole 1 % cream 1 appl topical BID 28 Days Qty: 45 0RF (DME) CANE See Rx Instructions .Route .MEDSUPPLY Qty: 1 0RF Rx Instructions: As directed Referrals: Ross,Arabella Jara MD [Primary Care Provider, Internal Medicine] Clinical Impression: Chest wall pain Print Language: Uzbek
[2025-05-09 18:46] LABS: Hematocrit 41.7 % (37.0-47.0); Hemoglobin 14.1 g/dl (12.0-16.0); Imm Gran Abs Auto 0.02 X10*3/uL (0.00-0.03); Imm Gran Pct Auto 0.3 % (0.0-0.4); Lymphocytes Absolute Auto 2.4 X10*3/uL (1.2-4.9); MANUAL DIFF FLAG NO; Mean Corpuscular HGB Conc 33.8 g/dl (31.0-35.0); Mean Corpuscular Hemoglobin 31.3 pg (27.0-33.0); Mean Corpuscular Volume 92.5 fL (80.0-98.0); NRBC Abs Auto 0.000 X10*3/uL (0.0-0.012); NRBC Pct Auto 0.0 /100WBC (0.0-0.2); Platelet Count 353 X10*3/uL (160-400); Red Blood Count 4.51 X10*6/uL (4.20-5.50); White Blood Count 7.6 X10*3/uL (4.8-10.8)
[2025-05-09 19:03] LABS: Alanine Aminotransferase 24 U/L (0-31); Albumin Level 4.8 g/dL (3.5-5.0); Alkaline Phosphatase 72 U/L (39-117); Anion Gap 13 (12-20); Aspartate Amino Transferase 20 U/L (5-31); Blood Urea Nitrogen 20 mg/dL (9-16); Calcium 10.4 mg/dL (8.4-10.2); Carbon Dioxide 27 mmol/L (22-29); Chloride 107 mmol/L (96-108); Creatinine Clr Calc Pharmacy 75.3; Estimated Glomerular Filt Rate > 60; Potassium 4.4 mmol/L (3.3-5.1); Sodium 143 mmol/L (135-145); Total Protein 7.9 g/dL (6.5-8.0)
[2025-05-09 19:13] LABS: Troponin-I High Sensitivity < 2.7 ng/L (<3.5-17.0)
[2025-05-09 19:34] VITALS: BP 162/75; PULSE 72; RESP 18; TEMP 36.6; O2SAT 100
[2025-05-09 22:11] VITALS: BP 153/70; PULSE 67; RESP 18; TEMP 36.7; O2SAT 99
[2025-05-09] MEDS: iohexoL 350 MG/ML 100 ML INFUS..BTL IV (22:12)
--- NOTE | 2025-05-09 22:13 | PC.NURSE ---
20 g IV in left forearm
[2025-05-09 23:03] VITALS: BP 144/75; PULSE 78; RESP 16; TEMP 36.6; O2SAT 98
[2025-05-09] MEDS: Lidocaine 4 % Patch ADH..PATCH 1 PATCH TRANSDERMA (23:39)
[2025-05-09 23:48] VITALS: BP 144/75; PULSE 78; RESP 16; TEMP 36.6; O2SAT 98
== END 2025-05-09 23:49 | disposition home or self-care (01) ==
PROVIDERS: Nurse Practitioner Family; Emergency Provider Student in an Organized Health Care Education/Training Program; PCP Internal Medicine
DX: R07.89 Other chest pain (principal); R42 Dizziness and giddiness; R00.0 Tachycardia, unspecified; R04.2 Hemoptysis
CPT/HCPCS: 36415; 70450; 71046; 71275; 80048; 80076; 84484; 85025; 93005; 99285; Q9967

== ENCOUNTER → 2025-05-09 17:32 | Outpatient (BNV) | payer OTHER, SELFPAY | PROVIDERS: Emergency Provider Student in an Organized Health Care Education/Training Program; PCP Internal Medicine; Visit Provider Internal Medicine Cardiovascular Disease | DX: R00.0 Tachycardia, unspecified (principal) | CPT/HCPCS: 93010 ==

== ENCOUNTER → 2025-05-09 17:58 | Outpatient (BNV) | payer OTHER, SELFPAY | PROVIDERS: PCP Internal Medicine; Visit Provider Radiology Diagnostic Radiology | DX: R07.9 Chest pain, unspecified (principal) | CPT/HCPCS: 71046 ==

== ENCOUNTER 2025-05-18 08:01 | Outpatient (REF) | payer OTHER, SELFPAY | END 2025-05-18 08:02 | LOC: HO.MAMMO 08:01 | PROVIDERS: PCP Internal Medicine; Visit Provider Internal Medicine | DX: Z12.31 Encounter for screening mammogram for malignant neoplasm of breast (principal) | CPT/HCPCS: 77063; 77067 ==

== ENCOUNTER → 2025-05-18 08:15 | Outpatient (BNV) | payer OTHER, SELFPAY | PROVIDERS: PCP Internal Medicine; Visit Provider Internal Medicine | DX: Z12.31 Encounter for screening mammogram for malignant neoplasm of breast (principal) | CPT/HCPCS: 77063; 77067 ==

== ENCOUNTER 2025-05-20 14:28 | Outpatient (AMB) | payer OTHER, SELFPAY ==
[2025-05-20 14:39] VITALS: BP 138/80; PULSE 79; RESP 18; O2SAT 99; BMI 31.2
--- NOTE | 2025-05-20 14:39 | MHC.PC.OV ---
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 Accompanied by: Self / Same As Patient Allergies zaleplon Allergy (Unknown, Verified 05/20/25 14:41) inadequate response zolpidem Allergy (Unknown, Verified 05/20/25 14:41) inadequate response Medication List - Last Reconciled 05/20/25 by Arabella Hawkins MD acetaminophen 1,000 mg (2 x 500 mg) PO Q6H PRN 5 days [CANE As directed] cholecalciferol (vitamin D3) 25 mcg PO DAILY clotrimazole 1% 1 appl topical BID 4 weeks doxylamine succinate 25 mg PO BEDTIME PRN fluticasone furoate 27.5 mcg/actuation 2 sprays intranasal DAILY 30 days phentermine 37.5 mg PO DAILY Tobacco use date assessed: 05/20/25 Dental Screening Dental Screen Date: 05/20/25 Did you have a dental visit in the last 12 months?: Yes Did you have a dental problem in the last 6 months where you did not have access to dental care?: No Was dental information given to patient?: Patient has dentist HPI weight HPI Details dizzy and palpitations and NAJERA HPI Comments History of Present Illness Details History of Present Illness The patient is a 50-year-old obese female presenting for a follow-up visit. Her past medical history includes GERD, mixed incontinence, left nephrolithiasis, and peripheral vascular disease. In April, the patient went to the emergency room for chest pain. A CTA performed at that time was negative for a pulmonary embolism but revealed an incidental 4 mm left lower lobe nodule, with a recommendation for follow-up in one year. Recent blood work from April showed a normal blood count, normal renal function, and normal liver function. Her blood sugar was elevated at 101, and calcium was 10.4. A lipid panel from March showed an LDL of 109. The patient reports recent symptoms of dizziness and feeling very hot. She recently finished a course of phentermine for weight loss. She does not have a history of smoking. Regarding health maintenance, her mammogram is noted as up to date as of April 2025 and her last colonoscopy was in November 2021. Health Maintenance Recent lab work indicates prediabetes with a blood sugar of 101 and suggests dehydration. The patient was advised to increase her water intake. It was also recommended that she receive an influenza vaccine due to the current flu season. Social History - Tobacco Use: Denies ever smoking. - Environmental Exposure: Reports possible exposure to mold while cleaning. - Diet: Blood analysis indicates insufficient water intake. - Weight Management: The patient recently used phentermine and is interested in injectable weight loss medications. Results - Imaging: - Chest CTA (April): Negative for pulmonary embolism; incidental finding of a 4 mm left lower lobe nodule. - Mammogram (April 2025): Up to date. - Procedures: - Colonoscopy (November 2021): Completed. - Labs: - Blood work (April): Blood count, renal function, and liver function were all within normal limits. - Blood sugar (April): 101 mg/dL. - Serum Calcium (April): 10.4. - Lipid Panel (March): LDL 109 mg/dL. [facility] Medical History (Updated 05/20/25 @ 14:59 by Arabella Hawkins MD) Overweight (BMI 25.0-29.9) Vaginal irritation Encounter for annual routine gynecological examination Dysuria Vaginal discomfort Swollen eyelid Fibroid Annual physical exam Strabismus Insomnia Anxiety and depression Right renal stone Stress incontinence GERD (gastroesophageal reflux disease) Allergic rhinitis Vitamin D deficiency Breast asymmetry Surgical History History of breast mammoplasty H/O abdominoplasty Family History Mother Hypertension Father Cancer Liver cancer Maternal Aunt Breast cancer Social History Housing: Apartment Alcohol intake: former Patient Tobacco Use Status: Never used Tobacco Tobacco use type: Cigarette e-Cigarette/Vaping Use: Never Used Second Hand Smoke Exposure: No service: No Current occupational status: employed Current occupation: Homecare Cognitive needs: No Hearing needs: No Vision needs: Yes Female Reproductive History Menstrual Age of Menarche: 11 Questionnaire Thrive Questionnaire Date Thrive assessed: 06/12/24 I am a: Patient What is your living situation today?: I choose not to answer this question Within the past 12 months, did the food you bought not last and you didn't have the money to get more?: I choose not to answer this question Within the past 12 months, did you worry whether your food would run out before you got money to buy more?: I choose not to answer this question Do you have trouble paying for medicines?: I choose not to answer this question Do you have trouble getting transportation to medical appointments?: I choose not to answer this question Do you have trouble paying your heating and electricity bill?: I choose not to answer this question Do you have trouble taking care of your child, family member or friend?: I choose not to answer this question Do you have trouble with day-to-day activities such as bathing, preparing meals, shopping, managing finances, etc.?: I choose not to answer this question Are you currently unemployed and looking for a job?: I choose not to answer this question Are you interested in more education?: I choose not to answer this question Currently or been in a relationship where the following occur: I choose not to answer THRIVE Score: 0 CEZAR-7 AMB Questionnaire CEZAR-7 Date CEZAR - 7 assessed: 06/12/24 Source: Developed by Drs. Trace Saldivar, Merissa Glasgow, Fercho Feng and colleagues, with an educational jeffrey from [employer]. Review of Systems Narrative Review of Systems - Constitutional: Reports feeling hot. - Neurological: Reports dizziness. - All other systems reviewed and are negative. Physical exam (Primary Care) Vital Signs: Last Vital Signs Pulse 79 05/20/25 14:39 Resp 18 05/20/25 14:39 BP 138/80 05/20/25 14:39 Pulse Ox 99 05/20/25 14:39 Oxygen Delivery Method Room Air 05/20/25 14:39 BMI result Body Mass Index 31.2 Tobacco/Smoking Status: Tobacco use Status Tobacco use date assessed 05/20/25 05/20/25 14:44 Patient Tobacco Use Status Never used Tobacco 05/20/25 14:44 Tobacco use type Cigarette 05/20/25 14:44 e-Cigarette/Vaping Use Never Used 05/20/25 14:44 Thrive Assessment: Date of Thrive Assessment Date Thrive assessed 06/12/24 05/20/25 14:44 Currently or been in a relationship where the following occur: I choose not to answer Narrative Physical Exam - Vitals: Blood pressure noted to have been high historically, but no current measurement was recorded. Const General: alert; No acute distress Eyes Conjunctivae: conjunctivae normal Resp Auscultation: clear to auscultation bilaterally Cardio Rate: regular rate Rhythm: regular rhythm GI Inspection: Yes normal to inspection Extrem General: Yes normal to inspection and No edema Coding Level of Care Code Est Pt Level 4 (33535) Add On Problem Visit Only Diagnoses Pulmonary nodule R91.1 Obesity (BMI 30-39.9) E66.9 Gastroesophageal reflux disease without esophagitis K21.9 Esophagitis presence: without esophagitis Hypertension I10 Tension headache G44.209 Heart palpitations R00.2 Assessment & Plan Assessment & Plan (1) Pulmonary nodule: Comment: April 2025No pulmonary embolism to the level of the lobar pulmonary arteries. 4mm left lower lobe nodule. Recommend follow up CT chest in 12 months. Code(s): R91.1 - Solitary pulmonary nodule Category: Medical Plan: Discussed with the patient that 4 mm left lower lobe nodule identified incidentally (2) Obesity (BMI 30-39.9): Code(s): E66.9 - Obesity, unspecified Category: Medical Plan: Diet and exercise (3) GERD (gastroesophageal reflux disease): Comment: With esophageal dysmotility Code(s): K21.9 - Gastro-esophageal reflux disease without esophagitis Category: Medical Qualifiers: Esophagitis presence: without esophagitis Qualified Code(s): K21.9 - Gastro-esophageal reflux disease without esophagitis Plan: Avoid the foods that causes that usually spicy foods, tomato products, juices, coffee, soda and foods that your sensitive to. After eating do not lie down, allow 3-4 hours before in lie down. And keep the head of bed above 30 degrees to avoid the acid from going up. (4) Hypertension: Code(s): I10 - Essential (primary) hypertension Category: Medical Plan: Concern that the blood pressure has been elevated. (5) Tension headache: Code(s): G44.209 - Tension-type headache, unspecified, not intractable Category: Medical (6) Heart palpitations: Code(s): R00.2 - Palpitations Category: Medical Plan Plan Patient was informed and verbally consented to the use of an ambient scribe for clinic note documentation during this visit. 1. Pulmonary Nodule, Left Lower Lobe The patient has a 4 mm left lower lobe nodule found incidentally on a chest CTA in April. The nodule is too small to biopsy due to the high risk of complications, such as pneumothorax, and the difficulty of targeting such a small lesion. The etiology is unknown, but given the patient's lack of smoking history, the plan is for surveillance. A follow-up scan will be performed in one year to monitor for any growth. 2. Obesity And Elevated Blood Pressure The patient has obesity and a history of elevated blood pressure, which may have been exacerbated by her recent use of phentermine. She has completed the course of phentermine. The risks of phentermine, including its effects on heart rate and blood pressure, were discussed. The patient has expressed interest in alternative weight loss medications, such as injectable therapies, which can be explored as an option. Discussion Notes I discussed the incidental finding of a 4 mm left lower lobe pulmonary nodule from her recent CTA. I explained that a biopsy is not recommended at this time due to its small size and the associated risks, such as a pneumothorax or missing the nodule entirely. I advised that we will monitor the nodule with a follow-up scan in one year, approximately next April, to check for any change in size. We reviewed her recent use of phentermine for weight loss, and I explained how it can increase heart rate and blood pressure. We discussed her interest in alternative injectable medications for weight management. I also advised her that her blood work suggests she should drink more water and recommended she get her flu shot. Patient Instructions - You have a very small, 4 mm spot in your left lung that was found by chance on a recent scan. Because it is so small, it is not safe to test it right now. - We will get another scan in one year, around April of next year, to make sure it has not grown. - Please do not worry about this finding. Since you have never smoked, we will just keep an eye on it. - The diet pill you finished, phentermine, can raise your blood pressure and heart rate. It is good that you are no longer taking it. - Your blood tests show you should drink more water. Please try to increase your daily water intake. - It is flu season. I recommend you get a flu shot to protect yourself from getting sick. Orders: Orders CT chest wo IV con 1 Year R91.1 - Solitary pulmonary nodule ECG 3 day holter monitor Today R00.2 - Palpitations Medications: New trazodone 50 mg PO BEDTIME PRN 30 tabs 0RF sleep G47.00 - Insomnia, unspecified tirzepatide (Mounjaro) for 4 weeks 2.5 mg (0.5 mL) subcut QWEEK 2 mL 2RF E66.9 - Obesity, unspecified Discontinued phentermine must administer 30 minutes before or 1-2 hours after breakfast Discontinued Reason: Doctor's Order 37.5 mg PO DAILY 30 caps 0RF E66.9 - Obesity, unspecified doxylamine succinate Discontinued Reason: Insurance Denied 25 mg PO BEDTIME PRN 30 tabs 0RF sleep G47.00 - Insomnia, unspecified
== END 2025-05-20 15:53 | disposition home or self-care (01) ==
LOC: HO.HMCH 14:29
PROVIDERS: PCP Internal Medicine; Visit Provider Internal Medicine
DX: R91.1 Solitary pulmonary nodule (principal); E66.9 Obesity, unspecified; K21.9 Gastro-esophageal reflux disease without esophagitis; I10 Essential (primary) hypertension; G44.209 Tension-type headache, unspecified, not intractable; R00.2 Palpitations

== ENCOUNTER → 2025-05-20 14:28 | Outpatient (BNVA) | payer OTHER, SELFPAY | PROVIDERS: PCP Internal Medicine; Visit Provider Internal Medicine | DX: R91.1 Solitary pulmonary nodule (principal); E66.9 Obesity, unspecified; R00.2 Palpitations; K21.9 Gastro-esophageal reflux disease without esophagitis; G47.00 Insomnia, unspecified; G44.209 Tension-type headache, unspecified, not intractable | CPT/HCPCS: 99212 ==